=== PATIENT | female | born 1950 | race Caucasian/White ===

== ENCOUNTER 2016-05-25 06:07 | Inpatient (IN) | payer MEDICARE, OTHER ==
[~2016-05-25] VITALS: Ht 172.7 cm; Wt 61.2 kg
--- NOTE | 2016-05-25 07:52 | ERA ---
ER Documentation Chief Complaint Date/Time DATE: 05/25/16 TIME: 07:49 Chief Complaint easily tired x 2 weeks, jaundice skin color x 2 weeks HPI 65-year-old female who presents to the emergency room with fatigue, weight loss , painless jaundice. She describes approximately 2 weeks of symptoms. She states that she is seen in an urgent care and had blood work that showed a right hyperbilirubinemia. She states an ultrasound that showed a fatty liver. She denies any pain, no nausea vomiting or diarrhea. Patient denies any recent travel or diarrheal illness. She does not drink alcohol. ROS All systems reviewed and are negative except as per history of present illness. Allergies Allergies: Coded Allergies: codeine (Verified Allergy, Unknown, 05/25/16) sulfur (Verified Allergy, Unknown, 05/25/16) FmHx Family History: No diabetes Physical Exam Vitals Vital Signs Date Time Temp Pulse Resp B/P Pulse Ox O2 Delivery O2 Flow Rate FiO2 05/25/16 06:11 98.3 74 20 103/54 100 Physical Exam General: Well developed, well nourished, no acute distress, jaundiced Head: Normocephalic, atraumatic. Eyes: Pupils equally reactive, EOM intact scleral icterus ENT: Moist mucous membranes Neck: Supple, no lymphadenopathy Respiratory: Lungs clear bilaterally, no distress Cardiovascular: RRR, no murmurs, rubs, or gallops Abdominal: Soft, non-tender, non-distended, no peritoneal signs : Deferred MSK: No edema, no unilateral swelling, 5/5 strength Neurologic: Alert and oriented, moving all extremities, normal speech, no focal weakness, no cerebellar signs Skin: Significant jaundice Psych: Normal mood Result Diagram: 05/25/16 0820 05/25/16 0820 Results 24 hrs Laboratory Tests Test 05/25/16 07:30 05/25/16 08:20 Urine Bilirubin 3+ Urine Clarity SLIGHTLY CLOUDY Urine Color GIL Urine Glucose 0.25%% Urine Granular Casts FEW Urine Hemoglobin NEGATIVE Urine Ictotest POSITIVE Urine Ketones TRACE Urine Leukocyte Esterase NEGATIVE Urine Microscopic RBC NONE SEEN/HPF Urine Microscopic WBC NONE SEEN/HPF Urine Nitrite NEGATIVE Urine Specific [place] 1.020 Urine Squamous Epithelial Cells FEW Urine Total Protein TRACE Urine Urobilinogen 0.2 E.U./dL Urine pH 5.5 Activated Partial Thromboplast Time 34.3Sec Alanine Aminotransferase (ALT/SGPT) 659IU/L Albumin 3.2g/dl Albumin/Globulin Ratio 0.74 Alkaline Phosphatase 296IU/L Anion Gap 17 Aspartate Amino Transf (AST/SGOT) 1429IU/L Basophils # 0.110^3/ul Basophils % 1.0% Blood Urea Nitrogen 9mg/dl Calcium Level 9.0mg/dl Carbon Dioxide Level 26mmol/L Chloride Level 106mmol/L Creatinine 0.74mg/dl Direct Bilirubin 15.50mg/dl Eosinophils # 0.310^3/ul Eosinophils % 3.7% Globulin 4.30g/dl Glucose Level 92mg/dl Hematocrit 36.2% Hemoglobin 12.4g/dl INR International Normalized Ratio 1.29 Indirect Bilirubin 1.9mg/dl Lipase 329U/L Lymphocytes # 1.710^3/ul Lymphocytes % 23.5% Mean Corpuscular Hemoglobin 27.4pg Mean Corpuscular Hemoglobin Concent 34.3g/dl Mean Corpuscular Volume 79.9fl Mean Platelet Volume 10.0fl Monocytes # 1.210^3/ul Monocytes % 16.8% Neutrophils # 4.010^3/ul Neutrophils % 54.2% Nucleated Red Blood Cells # 0.010^3/ul Nucleated Red Blood Cells % 0.0/100WBC Platelet Count 19010^3/UL Potassium Level 4.1mmol/L Prothrombin Time 16.2Sec Prothrombin Time Ratio 1.3 Red Blood Count 4.5310^6/ul Red Cell Distribution Width 26.8% Sodium Level 145mmol/L Total Bilirubin 17.4mg/dl Total Protein 7.5g/dl White Blood Count 7.410^3/ul Current Medications Medications (Trade) Dose Ordered Sig/Keron Route PRN Reason Start Time Stop Time Status Last Admin Dose Admin Ondansetron HCl (Zofran Inj) 4 mg BRIDGE ORDER PRN IV NAUSEA AND/OR VOMITING 05/25/16 10:00 05/26/16 09:59 Acetaminophen (Tylenol Tab) 650 mg ER BRIDGE PRN PO MILD PAIN/FEVER 05/25/16 10:00 05/26/16 09:59 Procedures/MDM EKG, MONITORS, & DIAGNOSTIC IMAGING: Chest x-ray: I reviewed and interpreted a 1 view of the chest Mediastinum: No enlargement Cardiac silhouette: No cardiomegaly Airspace: Clear lung juarez bilaterally without evidence of pneumothorax Bones: No evidence of fracture Gallbladder ultrasound: IMPRESSION: 1. Unremarkable right upper quadrant ultrasound. 2. Nonvisualization of the gallbladder, which may be surgically absent. RPTAT: UU CT abdomen and pelvis: IMPRESSION: Rounded hypodensity of the left kidney measures 2.5 cm and could represent a hemorrhagic cyst however mass is not excluded. This can be better assessed with MRI of the abdomen without contrast or CT with renal protocol. Possible inflammatory changes the gallbladder which can be better assessed with gallbladder ultrasound. Mild splenomegaly. No evidence of bowel obstruction or inflammation. There is a fecal filled colon. Atherosclerotic disease is present. RPTAT: AA LAB INTERPRETATION: Indirect hyperbilirubinemia, transaminitis MEDICAL DECISION MAKING: I reviewed the patient's outpatient medical records. Appears the patient has significant direct hyperbilirubinemia. Her hepatitis screening was negative. Given the patient's painless jaundice this raises the concern for obstructive process such as pancreatic malignancy. She does not seem to exhibit any signs or symptoms concerning for hemolysis. No fever, no pain making ascending cholangitis and choledocholithiasis less likely. For these reasons I believe that brought her laboratory testing and CT imaging of the abdomen and pelvis would be reasonable. I would recommend inpatient hospitalization for further malignancy workup. ER COURSE: No evidence of hemolysis. Indirect hyperbilirubinemia is confirmed. Renal mass on CT. CT visualizes the gallbladder the ultrasound does not. The patient will certainly benefit from MRI imaging. Still strong concern for possible pancreatic mass. The patient has very poor outpatient follow-up, no primary care physician. I would strongly recommend inpatient hospitalization. Patient is agreeable. I kept the patient and/or family informed of laboratory and diagnostic imaging results throughout the emergency room course. DISPOSITION PLAN: Medical surgical admission for management of direct hyperbilirubinemia CONSULTATION: Accepting care team and consultations: I discussed the current laboratory data, diagnostic imaging and emergency care provided. Admitting team: Dr. Borrego Admitting team indication: Insurance directed Departure Diagnosis: Primary Impression: Direct hyperbilirubinemia Additional Impressions: Renal mass Transaminitis Condition: Stable KATIE ABERNATHY MD May 25, 2016 07:52
--- NOTE | 2016-05-25 07:57 | RADRPT ---
PROCEDURE: CT abdomen and pelvis without contrast. CLINICAL INDICATION: Abdominal pain. TECHNIQUE: CT scan of the abdomen and pelvis without contrast was performed on a multi-slice CT [facility] . Sagittal and coronal reformatted images were obtained from the axial source images. DLP 433.5 mGycm. CTDIvol 8.5 mGy COMPARISON: None FINDINGS: The lung bases are clear. There is limited evaluation of the solid viscera from the lack of IV con trast. Within the left kidney there is a rounded hyperdense lesion that measures 2.6 cm there is partially exophytic, left lower pole. No other focal renal lesions are present. There are no renal or ureter al calculi present with no hydronephrosis. There is normal density of the liver with no gross focal lesion or biliary ductal dilatation. The gallbladder there is a slightly irregular appearance with possible trace surrounding fat stranding a nd layering material within it. The spleen is at the upper limits of normal in size. The adrenal glands are within normal limits wi thout mass. The pancreas is unremarkable without focal lesion or surrounding inflammatory changes. There is no bowel obstruction or focal bowel inflammation. The appendix is not seen. There is a mil dly diffusely fecal filled colon. There is no free air or free fluid. There are no enlarged lymph n odes. There is aortic atherosclerosis without aneurysmal dilatation. Degenerative changes are seen in t he lumbar spine with no acute osseous abnormality. The pelvic organs are poorly visualized with no gross pelvic or adnexal mass. IMPRESSION: Rounded hypodensity of the left kidney measures 2.5 cm and could represent a hemorrhagic cyst howeve r mass is not excluded. This can be better assessed with MRI of the abdomen without contrast or CT with renal protocol. Possible inflammatory changes the gallbladder which can be better assessed with gallbladder ultrasou nd. Mild splenomegaly. No evidence of bowel obstruction or inflammation. There is a fecal filled colon. Atherosclerotic disease is present. RPTAT: AA .Lolita Villegas MD, Date Time Electronically viewed and signed by .Lolita Villegas MD, on 05/25/2016 07:56 .J/
[2016-05-25 08:04] LABS: ADD UMIC YES; URINE BILIRUBIN (Dip) 3+ (NEGATIVE); URINE BLOOD (Dip) NEGATIVE (NEGATIVE); URINE COLOR AMBER (YELLOW); URINE KETONES (Dip) TRACE (NEGATIVE); URINE LEUKOCYTE ESTERASE (Dip) NEGATIVE (NEGATIVE); URINE NITRITE (Dip) NEGATIVE (NEGATIVE); URINE TOTAL PROTEIN (Dip) TRACE (NEGATIVE); URINE UROBILINOGEN (Dip) 0.2 E.U./dL (0.1-1.0)
--- NOTE | 2016-05-25 08:18 | RADRPT ---
PROCEDURE: XR Chest. CLINICAL INDICATION: Abdominal pain. TECHNIQUE: Single frontal chest x-ray. COMPARISON: None available. FINDINGS: There are surgical clips overlying the right lower chest. The cardiomediastinal silhouette is within normal limits. The lungs are clear without focal consolidation, effusion, or pneumothorax. There are no acute osseous abnormalities. IMPRESSION: 1. No acute cardiopulmonary abnormality. RPTAT: GG .Boy Ruth MD, MD Date Time Electronically viewed and signed by .Boy Ruth MD, on 05/25/2016 08:18 .P/
[2016-05-25 08:19] LABS: ICTOTEST POSITIVE (NEGATIVE); SQUAMOUS EPITHELIAL CELL,UR FEW; URINE RBCS NONE SEEN /HPF (0)
--- NOTE | 2016-05-25 08:21 | RADRPT ---
PROCEDURE: Right upper quadrant abdominal ultrasound. CLINICAL INDICATION: Jaundice. TECHNIQUE: Multiple real-time longitudinal and transverse images of the right upper quadrant of th e abdomen were acquired utilizing a curved array transducer. Images were reviewed on a high-resoluti on PACS workstation. COMPARISON: CT dated 05/25/2016. FINDINGS: There is normal size and echogenicity of the liver with no focal mass lesion identified . There is h epatopedal flow within the main portal vein. The gallbladder is not identified and may be surgically absent. There is no intra or extrahepatic biliary ductal dilatation. The common bile duct measures 1.1 mm in maximal dimension. The visualized portions of the pancreas are unremarkable. No free flu id is identified. The right kidney measures 8.5 cm in length and demonstrates normal echogenicity. There is no hydrone phrosis, nephrolithiasis, or renal mass. IMPRESSION: 1. Unremarkable right upper quadrant ultrasound. 2. Nonvisualization of the gallbladder, which may be surgically absent. RPTAT: UU .Boy Ruth MD, MD Date Time Electronically viewed and signed by .Boy Ruth MD, MD on 05/25/2016 08:20 .P/
[2016-05-25 08:29] LABS: ADD SCAN DIFF NO
[2016-05-25 08:36] LABS: ABNORMAL IP MESSAGE 1; BASOPHIL # 0.1 10^3/ul (0.0-0.1); EOSINOPHILS # 0.3 10^3/ul (0.0-0.5); EOSINOPHILS % 3.7 % (0.0-7.0); HEMATOCRIT 36.2 % (37.0-47.0); HEMOGLOBIN 12.4 g/dl (12.0-16.0); LYMPHOCYTES # 1.7 10^3/ul (0.8-2.9); LYMPHOCYTES % 23.5 % (15.0-51.0); MEAN CORPUSCULAR HEMOGLOBIN 27.4 pg (29.0-33.0); MEAN CORPUSCULAR HGB CONC 34.3 g/dl (32.0-37.0); MEAN CORPUSCULAR VOLUME 79.9 fl (82.0-101.0); MONOCYTE # 1.2 10^3/ul (0.3-0.9); MONOCYTES % 16.8 % (0.0-11.0); NEUTROPHILS % 54.2 % (39.0-77.0); PLATELET COUNT 329 10^3/UL (140-415); RED BLOOD COUNT 4.53 10^6/ul (4.20-5.40); RED CELL DISTRIBUTION WIDTH 26.8 % (11.5-14.5); WHITE BLOOD COUNT 7.4 10^3/ul (4.8-10.8)
[2016-05-25 08:50] LABS: INR 1.29; PARTIAL THROMBOPLASTIN TIME 34.3 Sec (25.0-35.0); PROTIME 16.2 Sec (12.2-14.2); PT RATIO 1.3
[2016-05-25 08:51] LABS: ALBUMIN 3.2 g/dl (3.3-4.9)
[2016-05-25 08:52] LABS: POTASSIUM 4.1 mmol/L (3.5-5.1)
[2016-05-25 08:53] LABS: CREATININE 0.74 mg/dl (0.44-1.00)
[2016-05-25 08:54] LABS: ALBUMIN/GLOBULIN RATIO 0.74; BILIRUBIN,INDIRECT 1.9 mg/dl (0-1.1); BILIRUBIN,TOTAL 17.4 mg/dl (0.2-1.3); TOTAL PROTEIN 7.5 g/dl (6.1-8.1)
[2016-05-25 09:05] LABS: BILIRUBIN,DIRECT 15.5 mg/dl (0.00-0.20)
[2016-05-25] MEDS ORDERED: ONDANSETRON 4 MG INJ IV PRN ×2 (10:00→11:30)
[2016-05-25] MEDS ORDERED: ACETAMINOPHEN 325 MG TAB PO PRN (10:00)
[2016-05-25] MEDS ORDERED: SOD CHLORIDE 0.9% 1,000 ML IV SCH (11:00)
[2016-05-25 11:22] VITALS: TEMP 98.3
[2016-05-25] MEDS ORDERED: NACL 0.9% 3 ML SYG IV SCH (11:30)
[2016-05-25] MEDS ORDERED: morphine 2 MG INJ IV PRN (11:30)
[2016-05-25] MEDS ORDERED: MAGNESIUM HYDROXIDE 30ML CUP PO PRN (11:30)
[2016-05-25] MEDS ORDERED: BISACODYL (EC) 5 MG TAB PO PRN (11:30)
[2016-05-25 11:43] VITALS: Ht 172.7 cm; Wt 61.2 kg
[2016-05-25 11:57] VITALS: BP 108/55; PULSE 67; RESP 18
[2016-05-25] MEDS ORDERED: traMADol 50 MG TAB PO PRN (12:00)
[2016-05-25] MEDS: SOD CHLORIDE 0.9% 1,000 ML IV SCH (12:24)
[2016-05-25 12:33] LABS: RETICULOCYTE COUNT % 1.3 % (0.5-1.5)
--- NOTE | 2016-05-25 13:59 | HP ---
DATE OF ADMISSION: 05/25/2016 TIME OF EVALUATION: 11:45 a.m. REASON FOR ADMISSION: Easy fatigability and jaundice. Consultants 1. Faith Sharp M.D., Gastroenterology. HISTORY OF PRESENT ILLNESS: This is a 65-year-old female with a past medical history of right breast cancer, status post partial lumpectomy and radiation therapy, who denies any other significant medical problems, who came to the emergency room with a chief complaint of easy fatigability, weight loss, and painless jaundice. The patient visited an outpatient clinic for similar complaints, where she had workup done. The patient was noticed to have significant hyperbilirubinemia with transaminitis. The patient also underwent further testing including hepatitis A, B and C serologies that were negative. The patient's HIV 1 and 2 antibodies were negative. The patient denies any IV drug abuse. The patient denies any prior blood transfusions. The patient does not take any routine medications other than vitamin supplements. In the emergency room, the patient was noticed to have hyperbilirubinemia with transaminitis. The patient also has slightly elevated lipase levels (329). The patient's urinalysis also showed bilirubin 3+, with a urine glucose of 0.25% . The patient underwent a gallbladder ultrasound that showed non-visualization of the gallbladder; however, CT scan of the abdomen and pelvis showed possible inflammatory changes of the gallbladder, which can be better assessed with gallbladder ultrasound. The CT also revealed mild splenomegaly and a rounded hypodensity of the left kidney measuring up to 2.5 cm. There was no evidence of any bowel obstruction or inflammation. The patient's chest x-ray was negative for any acute cardiopulmonary changes. The patient denied any fevers, chills, abdominal pain. Denies any bowel or bladder changes. However, the patient reported dark colored urine, which is expected with hyperbilirubinemia. The patient denied any recent travel outside of the country. PAST MEDICAL HISTORY: Denies, other than a history for right breast cancer. PAST SURGICAL HISTORY: Right partial mastectomy, appendectomy, tonsillectomy and adenoidectomy. HOME MEDICATIONS: Vitamin supplements. ALLERGIES: 1. CODEINE. 2. SULFA. FAMILY HISTORY: Negative for any diabetes or cancer. SOCIAL HISTORY: Denies any use of tobacco, alcohol or illicit drug use. 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 REVIEW OF SYSTEMS: A 12-point review of systems was made and review of systems were negative, other than what is mentioned in the history of present illness. PHYSICAL EXAMINATION: VITAL SIGNS: Temperature 98.0, pulse 64, respiratory rate 18, blood pressure 108/54, oxygen saturation 99% on room air. GENERAL: This is a 65-year-old female lying in bed, in no apparent distress. HEENT: Head normocephalic and atraumatic. Eyes, icteric sclerae. Conjunctivae clear. ENT: Nasal septum is midline. Oral mucosa is dry. NECK: Supple. No JVD noticed. RESPIRATORY: Bilaterally clear to auscultation. No adventitious breath sounds. No use of accessory muscles of respiration. CARDIAC: Regular rate and rhythm. No murmurs heard. GASTROINTESTINAL: Abdomen soft, nontender and nondistended. Bowel sounds positive in all 4 quadrants. Right lower quadrant a transverse surgical scar from a prior appendectomy. GENITOURINARY: Deferred. EXTREMITIES: No cyanosis, no clubbing, no edema. Peripheral pulses are palpable. NEUROLOGIC: The patient is awake, alert and oriented. Cranial nerves are grossly intact. SKIN: Icterus all over the body. No skin lesions. LABORATORY AND DIAGNOSTIC DATA: WBC 7.4, hemoglobin 12.4, hematocrit 36.2, platelet count 329. Sodium 145, potassium 4.1, chloride 106, carbon dioxide 26 , anion gap 17, BUN 9, creatinine 0.74, glucose 92, calcium 9.0, total bilirubin 17.4, direct bilirubin 15.5, indirect bilirubin 1.9. AST 1429, ALT 659 , alkaline phosphatase 296. Total protein 7.5, albumin 3.2, lipase 329. INR 1.29. PT 16.2, PTT 34.3. Urinalysis: Urine nitrites negative, urine leukocyte esterase negative. Urine bilirubin 3+, urine glucose 0.25%. Gallbladder ultrasound: Unremarkable right upper quadrant ultrasound. Nonvisualization of the gallbladder. Chest x-ray: No acute cardiopulmonary abnormalities. CT scan of the abdomen and pelvis: A rounded hypodensity of the left kidney measuring 2.5 cm and could represent a hemorrhagic cyst; however, a mass is not excluded. Possible inflammatory changes in the gallbladder, which can be further assessed with a gallbladder ultrasound. Mild splenomegaly. No evidence of bowel obstruction or inflammation. Atherosclerotic disease is present. IMPRESSION: This is a 65-year-old female who denies any significant past medical history, other than a remote history of breast cancer that is completely treated, who came to the emergency room with a chief complaint of generalized jaundice, easy fatigability and pruritus. She was found to have significant hyperbilirubinemia and transaminitis, and will be admitted here for further treatment and evaluation. ASSESSMENT AND PLAN: 1. Hyperbilirubinemia with transaminitis. Etiology is unclear. The patient's hepatitis serology from outside lab tests are negative. The patient's abdominal imaging that we have as inconclusive at this time. Will obtain an MRCP to evaluate for any underlying choledocholithiasis or other abnormalities of the biliary tree. A gastroenterology consult will be obtained. Hepatotoxic medications will be avoided. The patient will be evaluated for any underlying hemolysis. 2. Remote history of breast cancer, status post right partial mastectomy and radiation therapy. No active issues. Plan. The patient will be admitted to the inpatient medical/surgical floor. The patient will be started on a clear liquid diet. The patient will be started on DVT prophylaxis and gastrointestinal prophylaxis. The patient will remain a FULL CODE. Activities will be as tolerated. The rest of the patient's management will be based on the clinical course, the results of diagnostic studies, and inputs from consultants. Based on the patient's clinical presentation, she most probably requires at least a 2-midnights' stay for further management and evaluation of her clinical presentation. The case and management of this patient was fully discussed with Dr. Slater. Approximately 45 minutes was spent on the history and physical on this patient. CHRISTINE SLATER MD, AM/[facility] Conf#: [id number] DID#: [id number] MTDD
[2016-05-25 14:42] LABS: HAAIG REFLEX REFLEX FILED
--- NOTE | 2016-05-25 15:58 | CONS ---
Date/Time of Note Date/Time of Note DATE: 05/25/16 TIME: 15:41 Assessment/Plan Assessment/Plan Additional Assessment/Plan Assessment: * Hyperbilirubinemia/abnormal liver function tests/hepatocellular pattern * Rule out acute hepatitis: Viral A, B, C, CMV, other viruses * Rule out drug-induced. Unlikely as there is no history of exposure * Rule out obstructive although no dilatation of common bile duct will not support this possibility * Doubt pancreatic head neoplasm with negative CT for pancreatic mass or dilatation of the biliary tree * Rule out atypical presentation for sclerosing cholangitis/primary biliary cirrhosis * Distant history of right breast cancer/post lumpectomy plus radiation Plan: * MRCP already ordered * Serologies requested * Monitor liver function tests * If no specific diagnosis or trend to resolution resolution occurs must consider liver biopsy Consultation Date/Type/Reason Admit Date/Time May 25, 2016 at 11:40 Date of Consultation: May 25, 2016 Type of Consultation: Gastroenterology Reason for Consultation * Jaundice Hx of Present Illness Very pleasant 65-year-old female, she was in her usual state of health until she noticed obvious jaundice. Patient had experienced some fatigability, decreased appetite, no abdominal pain, no fever, chills or diaphoresis. Evaluation in the emergency room showed severe jaundice with a bilirubin of more than 17 g with associated marked elevation of AST ALT in the thousand range. A CT of the abdomen showed a hypodense lesion in 1 of the kidneys, there is no evidence of pancreatic mass or dilatation of the biliary tree. The patient is indeed asymptomatic at the present time other than minor anorexia. She denies any ill contacts, foreign traveling, and usual medications , supplements. She does admit to taking multivitamins from [facility] like store and the recommended doses. She denies alcohol abuse, drug use recently or in the past. She is scheduled to undergo MRCP later on today and hepatitis serology including hepatitis B, C and CMV have been requested, further recommendations will depend on the findings as well as her clinical course Constitutional: improved, no complaints, other (Increased fatigability), poor po Eyes: no complaints, other (Anicteric conjunctiva) ENT: no complaints Respiratory: no complaints Cardiovascular: no complaints Gastrointestinal: decreased appetite, no complaints Genitourinary: no complaints, other (Dark urine) Musculoskeletal: no complaints Skin: other (Deep jaundice/no stigmata of chronic liver disease) Neurologic: no complaints Endocrine: no complaints Lymphatic: no complaints Psychological: nl mood/affect, no complaints Immunologic: no complaints Past Medical History * Right-sided breast cancer/post lumpectomy and radiation Past Surgical History * Right lumpectomy * Appendectomy Family History Significant Family History: no pertinent family hx Social History Alcohol Use: rarely Smoking Status: Never smoker Drug Use: none Exam/Review of Systems Vital Signs Vitals Vital Signs Date Time Temp Pulse Resp B/P Pulse Ox O2 Delivery O2 Flow Rate FiO2 05/25/16 11:57 98.0 67 18 108/55 99 Room Air Exam Constitutional: alert, oriented, other (Deeply jaundice), well developed Psych: nl mood/affect, no complaints Head: atraumatic, normocephalic Eyes: EOMI, PERRL, nl lids, other (Icteric conjunctiva) ENMT: nl external ears & nose, nl lips & teeth, nl nasal mucosa & septum Neck: non-tender, supple Respiratory: clear to auscultation, normal air movement Cardiovascular: nl pulses, regular rate and rhythm Gastrointestinal: bowel sounds, hepatomegaly (Approximately 4 cm below right costal margin, slightly tender), non-tender, soft, tender (Slightly in the liver edge/right upper quadrant), No ascites, No distended, No mass, No rebound or guarding, No splenomegaly Musculoskeletal: nl extremities to inspection Extremities: normal pulses 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, nl mental status, nl speech, nl strength Skin: nl turgor, other (Deeply jaundice), No rash or lesions Lymph: nl lymph nodes Results Result Diagram: 05/25/16 0820 05/25/16 0820 Results 24 hrs Laboratory Tests Test 05/25/16 07:30 05/25/16 08:20 05/25/16 12:00 05/25/16 12:10 Urine Bilirubin 3+ H Urine Clarity SLIGHTLY CLOUDY Urine Color GIL Urine Glucose 0.25% H Urine Granular Casts FEW Urine Hemoglobin NEGATIVE Urine Ictotest POSITIVE Urine Ketones TRACE H Urine Leukocyte Esterase NEGATIVE Urine Microscopic RBC NONE SEEN Urine Microscopic WBC NONE SEEN Urine Nitrite NEGATIVE Urine Specific [place] 1.020 Urine Squamous Epithelial Cells FEW Urine Total Protein TRACE Urine Urobilinogen 0.2 E.U./dL Urine pH 5.5 Activated Partial Thromboplast Time 34.3 Alanine Aminotransferase (ALT/SGPT) 659 H Albumin 3.2 L Albumin/Globulin Ratio 0.74 Alkaline Phosphatase 296 H Anion Gap 17 H Aspartate Amino Transf (AST/SGOT) 1429 H Basophils # 0.1 Basophils % 1.0 Blood Urea Nitrogen 9 Calcium Level 9.0 Carbon Dioxide Level 26 Chloride Level 106 Creatinine 0.74 Direct Bilirubin 15.50 *H Eosinophils # 0.3 Eosinophils % 3.7 Globulin 4.30 H Glucose Level 92 Hematocrit 36.2 L Hemoglobin 12.4 INR International Normalized Ratio 1.29 Indirect Bilirubin 1.9 H Lipase 329 H Lymphocytes # 1.7 Lymphocytes % 23.5 Mean Corpuscular Hemoglobin 27.4 L Mean Corpuscular Hemoglobin Concent 34.3 Mean Corpuscular Volume 79.9 L Mean Platelet Volume 10.0 Monocytes # 1.2 H Monocytes % 16.8 H Neutrophils # 4.0 Neutrophils % 54.2 Nucleated Red Blood Cells # 0.0 Nucleated Red Blood Cells % 0.0 Platelet Count 329 Potassium Level 4.1 Prothrombin Time 16.2 H Prothrombin Time Ratio 1.3 Red Blood Count 4.53 Red Cell Distribution Width 26.8 H Sodium Level 145 H Total Bilirubin 17.4 *H Total Protein 7.5 White Blood Count 7.4 Absolute Reticulocyte Count 0.056 Hemoglobin A1c 4.9 Percent Reticulocyte Count 1.3 Alpha Fetoprotein 10.40 H Free Thyroxine 1.43 Lactate Dehydrogenase 1124 H Thyroid Stimulating Hormone (TSH) 2.380 Vitamin D 1,25-Dihydroxy 75.0 Test 05/25/16 14:35 Hepatitis B Core Total Antibody Pending Hepatitis B Surface Antigen Pending Hepatitis C Antibody Pending Medications Medications Current Medications Ondansetron HCl (Zofran Inj) 4 mg Q6H PRN IV NAUSEA AND/OR VOMITING; Start 01/31 at 11:30 Magnesium Hydroxide (Milk Of Mag) 30 ml DAILY PRN PO CONSTIPATION; Start at 11:30 Bisacodyl (Dulcolax) 5 mg DAILY PRN PO CONSTIPATION; Start 05/25/16 at 11:30 Famotidine (Pepcid) 20 mg Q12 PO ; Start 05/25/16 at 21:00 Tramadol HCl 50 mg 50 mg Q6H PRN PO Pain; Start 05/25/16 at 12:00 Sodium Chloride (NS) 1,000 ml @ 75 mls/hr [id number] IV Last administered on 05/25t 12:24; Admin Dose 75 MLS/HR; Start 05/25/16 at 12:30 LESTER DICK MD May 25, 2016 15:51
[2016-05-25] MEDS ORDERED: MELA1TAB9 PO (16:27)
[2016-05-25] MEDS ORDERED: CALC600T5 PO (16:27)
[2016-05-25] MEDS ORDERED: CHOL400T8 PO (16:27)
[2016-05-25] MEDS ORDERED: [UNRECOGNIZED DRUG - OTHER] (16:27)
[2016-05-25] MEDS ORDERED: VIT500LI PO (16:27)
[2016-05-25] MEDS ORDERED: reishi (16:27)
[2016-05-25] MEDS ORDERED: GARL1TAB PO (16:27)
[2016-05-25 18:47] LABS: HEPATITIS B CORE ANTIBODY NEGATIVE (NEGATIVE)
[2016-05-25 19:16] VITALS: BP 99/54; RESP 18
[2016-05-25 20:00] VITALS: BP 99/54; PULSE 60; RESP 18
[2016-05-25] MEDS: FAMOTIDINE 20 MG TAB PO SCH (20:36)
[2016-05-26] MEDS: SOD CHLORIDE 0.9% 1,000 ML IV SCH ×2 (01:20→16:56)
[2016-05-26 06:05] LABS: ABNORMAL IP MESSAGE 1; ADD SCAN DIFF NO; BASOPHIL # 0.1 10^3/ul (0.0-0.1); BASOPHILS % 1.4 % (0.0-2.0); EOSINOPHILS # 0.4 10^3/ul (0.0-0.5); EOSINOPHILS % 5.4 % (0.0-7.0); HEMATOCRIT 33.9 % (37.0-47.0); HEMOGLOBIN 11.4 g/dl (12.0-16.0); LYMPHOCYTES # 2.1 10^3/ul (0.8-2.9); LYMPHOCYTES % 30.2 % (15.0-51.0); MEAN CORPUSCULAR HEMOGLOBIN 26.9 pg (29.0-33.0); MEAN CORPUSCULAR HGB CONC 33.6 g/dl (32.0-37.0); MEAN PLATELET VOLUME 10.4 fl (7.4-10.4); MONOCYTE # 1.3 10^3/ul (0.3-0.9); NEUTROPHIL # 3.1 10^3/ul (1.6-7.5); NEUTROPHILS % 44.5 % (39.0-77.0); PLATELET COUNT 290 10^3/UL (140-415); RED BLOOD COUNT 4.24 10^6/ul (4.20-5.40); RED CELL DISTRIBUTION WIDTH 27.4 % (11.5-14.5)
[2016-05-26 06:07] LABS: MONOCYTES % 18.1 % (0.0-11.0)
[2016-05-26 06:44] LABS: ALBUMIN 2.6 g/dl (3.3-4.9)
[2016-05-26 06:45] LABS: POTASSIUM 4.5 mmol/L (3.5-5.1)
[2016-05-26 06:47] LABS: ALBUMIN/GLOBULIN RATIO 0.7; BILIRUBIN,DIRECT 13.2 mg/dl (0.00-0.20); BILIRUBIN,INDIRECT 2.3 mg/dl (0-1.1); BILIRUBIN,TOTAL 15.5 mg/dl (0.2-1.3); CREATININE 0.72 mg/dl (0.44-1.00); TOTAL PROTEIN 6.3 g/dl (6.1-8.1)
[2016-05-26 06:48] LABS: CALCIUM 8.1 mg/dl (8.4-10.2)
[2016-05-26 06:57] LABS: MAGNESIUM 2.1 mg/dl (1.7-2.5); PHOSPHORUS 3.1 mg/dl (2.5-4.9)
[2016-05-26 07:35] VITALS: BP_SYST 125; BP_SYST 96; BP_DIAS 54; BP_DIAS 60; RESP 18
[2016-05-26] MEDS: FAMOTIDINE 20 MG TAB PO SCH ×2 (08:08→21:17)
[2016-05-26 08:30] VITALS: BP 135/60; RESP 20
--- NOTE | 2016-05-26 09:01 | CONS ---
Date/Time of Note Date/Time of Note DATE: 05/26/16 TIME: 08:59 Assessment/Plan Assessment/Plan Additional Assessment/Plan Assessment: * Hyperbilirubinemia/abnormal liver function tests/hepatocellular pattern * Rule out acute hepatitis: Viral A, B, C, CMV, other viruses * Rule out drug-induced. Unlikely as there is no history of exposure * Rule out obstructive although no dilatation of common bile duct will not support this possibility * Doubt pancreatic head neoplasm with negative CT for pancreatic mass or dilatation of the biliary tree * Rule out atypical presentation for sclerosing cholangitis/primary biliary cirrhosis * Distant history of right breast cancer/post lumpectomy plus radiation Plan: * MRCP already ordered * Serologies requested * Monitor liver function tests * If no specific diagnosis or trend to resolution resolution occurs must consider liver biopsy Consultation Date/Type/Reason Admit Date/Time May 25, 2016 at 11:40 Initial Consult Date 05/25/16 Type of Consultation: Gastroenterology 24 HR Interval Summary Free Text/Dictation Hepatitis panel negative MRCP in process today Tolerating diet Exam/Review of Systems Vital Signs Vitals Vital Signs Date Time Temp Pulse Resp B/P Pulse Ox O2 Delivery O2 Flow Rate FiO2 05/26/16 08:30 98.2 60 20 135/60 99 05/25/16 20:00 Room Air Intake and Output 05/25/16 05/25/16 05/26/16 15:00 23:00 07:00 Intake Total 950 ml 1190 ml Balance 950 ml 1190 ml Exam Constitutional: alert, oriented, other (Deeply jaundice), well developed Psych: nl mood/affect, no complaints Head: atraumatic, normocephalic Eyes: EOMI, PERRL, nl lids, other (Icteric conjunctiva) ENMT: nl external ears & nose, nl lips & teeth, nl nasal mucosa & septum Neck: non-tender, supple Respiratory: clear to auscultation, normal air movement Cardiovascular: nl pulses, regular rate and rhythm Gastrointestinal: bowel sounds, hepatomegaly (Approximately 4 cm below right costal margin, slightly tender), non-tender, soft, tender (Slightly in the liver edge/right upper quadrant), No ascites, No distended, No mass, No rebound or guarding, No splenomegaly Musculoskeletal: nl extremities to inspection Extremities: normal pulses 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, nl mental status, nl speech, nl strength Skin: nl turgor, other (Deeply jaundice), No rash or lesions Lymph: nl lymph nodes Results Result Diagram: 05/26/16 0504 05/26/16 0504 Results 24 hrs Laboratory Tests Test 05/25/16 12:00 05/25/16 12:10 05/25/16 14:35 05/26/16 05:04 Absolute Reticulocyte Count 0.056 Hemoglobin A1c 4.9 Percent Reticulocyte Count 1.3 Alpha Fetoprotein 10.40 H Free Thyroxine 1.43 Lactate Dehydrogenase 1124 H Thyroid Stimulating Hormone (TSH) 2.380 Vitamin D 1,25-Dihydroxy 75.0 Hepatitis B Core Total Antibody NEGATIVE Hepatitis B Surface Antibody NEGATIVE Hepatitis B Surface Antigen NEGATIVE Hepatitis C Antibody NEGATIVE Alanine Aminotransferase (ALT/SGPT) 548 H Albumin 2.6 L Albumin/Globulin Ratio 0.70 Alkaline Phosphatase 243 H Ammonia 26 Amylase Level 64 Anion Gap 16 Aspartate Amino Transf (AST/SGOT) 1386 H Basophils # 0.1 Basophils % 1.4 Blood Urea Nitrogen 7 Calcium Level 8.1 L Carbon Dioxide Level 23 Chloride Level 109 Cholesterol Level 164 Cholesterol/HDL Ratio 6.0 Creatinine 0.72 Direct Bilirubin 13.20 H Eosinophils # 0.4 Eosinophils % 5.4 Globulin 3.70 H Glucose Level 72 HDL Cholesterol 27 L Hematocrit 33.9 L Hemoglobin 11.4 L Indirect Bilirubin 2.3 H LDL Cholesterol, Calculated 78 Lipase 163 Lymphocytes # 2.1 Lymphocytes % 30.2 Magnesium Level 2.1 Mean Corpuscular Hemoglobin 26.9 L Mean Corpuscular Hemoglobin Concent 33.6 Mean Corpuscular Volume 80.0 L Mean Platelet Volume 10.4 Monocytes # 1.3 H Monocytes % 18.1 H Neutrophils # 3.1 Neutrophils % 44.5 Nucleated Red Blood Cells # 0.0 Nucleated Red Blood Cells % 0.0 Phosphorus Level 3.1 Platelet Count 290 Potassium Level 4.5 Red Blood Count 4.24 Red Cell Distribution Width 27.4 H Sodium Level 143 Total Bilirubin 15.5 *H Total Protein 6.3 # Triglycerides Level 294 H White Blood Count 7.0 Medications Medications Current Medications Ondansetron HCl (Zofran Inj) 4 mg Q6H PRN IV NAUSEA AND/OR VOMITING; Start 01/31 at 11:30 Magnesium Hydroxide (Milk Of Mag) 30 ml DAILY PRN PO CONSTIPATION; Start at 11:30 Bisacodyl (Dulcolax) 5 mg DAILY PRN PO CONSTIPATION; Start 05/25/16 at 11:30 Famotidine (Pepcid) 20 mg Q12 PO Last administered on 05/26/16 08:08; Admin Dose 20 MG; Start 05/25/16 at 21:00 Tramadol HCl 50 mg 50 mg Q6H PRN PO Pain Last administered on 05/26/16 01:19; Admin Dose 50 MG; Start 05/25/16 at 12:00 Sodium Chloride (NS) 1,000 ml @ 75 mls/hr [id number] IV Last administered on 05/26 01:20; Admin Dose 75 MLS/HR; Start 05/25/16 at 12:30 STANLEY MARTINEZ May 26, 2016 09:01
--- NOTE | 2016-05-26 11:59 | PN ---
Date/Time of Note Date/Time of Note DATE: 05/26/16 TIME: 11:57 Assessment/Plan VTE Prophylaxis VTE Prophylaxis Intervention: other Lines/Catheters IV [facility] Peripheral IV Urinary Cath still in place: No Assessment/Plan Problems: (1) Direct hyperbilirubinemia Status: Acute Comment: Pending is the MRCP which should give us a direction to go in. Given the painless jaundice I am somewhat concerned (2) Breast cancer, right Status: Chronic Comment: This is an older report but we need to be aware of Qualifiers: Breast location: upper outer quadrant of breast Patient gender: female Qualified Code: C50.411 - Malignant neoplasm of upper-outer quadrant of right female breast (3) Transaminitis Status: Acute Comment: Duration is not entirely clear but I believe this is related to the admission complaint (4) Renal mass Status: Acute Subjective 24 Hr Interval Summary Free Text/Dictation Patient reports that she is doing relatively well no significant pruritus Constitutional: no complaints (No fever chills or sweats) Respiratory: no complaints Cardiovascular: no complaints Gastrointestinal: no complaints Genitourinary: no complaints Exam/Review of Systems Vital Signs Vitals Vital Signs Date Time Temp Pulse Resp B/P Pulse Ox O2 Delivery O2 Flow Rate FiO2 05/26/16 08:30 98.2 60 20 135/60 99 05/25/16 20:00 Room Air Intake and Output 05/25/16 05/25/16 05/26/16 14:59 22:59 06:59 Intake Total 950 ml 1190 ml Balance 950 ml 1190 ml Exam Deeply jaundiced Constitutional: alert, oriented Respiratory: clear to auscultation, normal air movement Cardiovascular: nl pulses, regular rate and rhythm Results Result Diagram: 05/26/16 0504 05/26/16 0504 Results 24 hrs Laboratory Tests Test 05/25/16 12:00 05/25/16 12:10 05/25/16 14:35 05/26/16 05:04 Absolute Reticulocyte Count 0.056 Hemoglobin A1c 4.9 Percent Reticulocyte Count 1.3 Alpha Fetoprotein 10.40 H Free Thyroxine 1.43 Lactate Dehydrogenase 1124 H Thyroid Stimulating Hormone (TSH) 2.380 Vitamin D 1,25-Dihydroxy 75.0 Hepatitis B Core Total Antibody NEGATIVE Hepatitis B Surface Antibody NEGATIVE Hepatitis B Surface Antigen NEGATIVE Hepatitis C Antibody NEGATIVE Alanine Aminotransferase (ALT/SGPT) 548 H Albumin 2.6 L Albumin/Globulin Ratio 0.70 Alkaline Phosphatase 243 H Ammonia 26 Amylase Level 64 Anion Gap 16 Aspartate Amino Transf (AST/SGOT) 1386 H Basophils # 0.1 Basophils % 1.4 Blood Urea Nitrogen 7 Calcium Level 8.1 L Carbon Dioxide Level 23 Chloride Level 109 Cholesterol Level 164 Cholesterol/HDL Ratio 6.0 Creatinine 0.72 Direct Bilirubin 13.20 H Eosinophils # 0.4 Eosinophils % 5.4 Globulin 3.70 H Glucose Level 72 HDL Cholesterol 27 L Hematocrit 33.9 L Hemoglobin 11.4 L Indirect Bilirubin 2.3 H LDL Cholesterol, Calculated 78 Lipase 163 Lymphocytes # 2.1 Lymphocytes % 30.2 Magnesium Level 2.1 Mean Corpuscular Hemoglobin 26.9 L Mean Corpuscular Hemoglobin Concent 33.6 Mean Corpuscular Volume 80.0 L Mean Platelet Volume 10.4 Monocytes # 1.3 H Monocytes % 18.1 H Neutrophils # 3.1 Neutrophils % 44.5 Nucleated Red Blood Cells # 0.0 Nucleated Red Blood Cells % 0.0 Phosphorus Level 3.1 Platelet Count 290 Potassium Level 4.5 Red Blood Count 4.24 Red Cell Distribution Width 27.4 H Sodium Level 143 Total Bilirubin 15.5 *H Total Protein 6.3 # Triglycerides Level 294 H White Blood Count 7.0 Medications Medications Current Medications Ondansetron HCl (Zofran Inj) 4 mg Q6H PRN IV NAUSEA AND/OR VOMITING; Start 01/31 at 11:30 Magnesium Hydroxide (Milk Of Mag) 30 ml DAILY PRN PO CONSTIPATION; Start at 11:30 Bisacodyl (Dulcolax) 5 mg DAILY PRN PO CONSTIPATION; Start 05/25/16 at 11:30 Famotidine (Pepcid) 20 mg Q12 PO Last administered on 05/26/16 08:08; Admin Dose 20 MG; Start 05/25/16 at 21:00 Tramadol HCl 50 mg 50 mg Q6H PRN PO Pain Last administered on 05/26/16 01:19; Admin Dose 50 MG; Start 05/25/16 at 12:00 Sodium Chloride (NS) 1,000 ml @ 75 mls/hr [id number] IV Last administered on 05/26 01:20; Admin Dose 75 MLS/HR; Start 05/25/16 at 12:30 ANDREW COLEMAN MD May 26, 2016 11:59
[2016-05-26 19:00] VITALS: BP 116/57; RESP 16
[2016-05-27] MEDS: SOD CHLORIDE 0.9% 1,000 ML IV SCH ×4 (04:05→20:13)
[2016-05-27 05:37] LABS: ADD SCAN DIFF NO
[2016-05-27 05:44] LABS: ABNORMAL IP MESSAGE 1; BASOPHIL # 0.1 10^3/ul (0.0-0.1); BASOPHILS % 1.2 % (0.0-2.0); EOSINOPHILS # 0.4 10^3/ul (0.0-0.5); EOSINOPHILS % 4.4 % (0.0-7.0); HEMATOCRIT 34.2 % (37.0-47.0); HEMOGLOBIN 11.4 g/dl (12.0-16.0); LYMPHOCYTES # 2.6 10^3/ul (0.8-2.9); LYMPHOCYTES % 32.4 % (15.0-51.0); MEAN CORPUSCULAR HEMOGLOBIN 26.6 pg (29.0-33.0); MEAN CORPUSCULAR HGB CONC 33.3 g/dl (32.0-37.0); MEAN CORPUSCULAR VOLUME 79.7 fl (82.0-101.0); MEAN PLATELET VOLUME 9.9 fl (7.4-10.4); MONOCYTE # 1.3 10^3/ul (0.3-0.9); MONOCYTES % 15.7 % (0.0-11.0); NEUTROPHIL # 3.7 10^3/ul (1.6-7.5); NEUTROPHILS % 45.6 % (39.0-77.0); PLATELET COUNT 278 10^3/UL (140-415); RED BLOOD COUNT 4.29 10^6/ul (4.20-5.40); RED CELL DISTRIBUTION WIDTH 28.8 % (11.5-14.5); WHITE BLOOD COUNT 8.2 10^3/ul (4.8-10.8)
[2016-05-27 05:59] LABS: ALBUMIN 2.6 g/dl (3.3-4.9)
[2016-05-27 06:00] LABS: POTASSIUM 4.4 mmol/L (3.5-5.1)
[2016-05-27 06:02] LABS: ALBUMIN/GLOBULIN RATIO 0.66; CREATININE 0.73 mg/dl (0.44-1.00); TOTAL PROTEIN 6.5 g/dl (6.1-8.1)
[2016-05-27 06:03] LABS: CALCIUM 8.2 mg/dl (8.4-10.2)
[2016-05-27 07:50] VITALS: BP 101/52; RESP 16
--- NOTE | 2016-05-27 10:33 | RADRPT ---
PROCEDURE: MRCP. CLINICAL INDICATION: Hyperbilirubinemia. TECHNIQUE: MRCP was performed. Patient was examined without contrast. 3-D coronal rotating MIP i mages of the biliary tree are available for review. COMPARISON: Ultrasound and CT, 05/25/2016 FINDINGS: The gallbladder is partially contracted, and demonstrates diffuse wall edema. No gross evidence of gallstone or pericholecystic inflammation is identified. There is no intra or extrahepatic biliary dilatation. No common duct stone, stricture or filling defect is identified. Pancreatic duct is no rmal in caliber. The liver demonstrates scattered well-defined T2 hyperintensities measuring up to 1.7 cm, likely ceci ign hemangiomas. Pancreas, spleen, adrenal glands and kidneys are unremarkable except for benign re nal cysts, some which are hemorrhagic. There is no obstructive uropathy. Abdominal aorta is normal in caliber. No retroperitoneal or dayanna hepatis lymphadenopathy is identified. The stomach is rose ssly unremarkable. No bowel obstruction, abscess or ascites is seen. The surrounding osseous structures are remarkable for degenerative spondylosis of the spine. No foc al osseous lesion is seen. IMPRESSION: 1. Gallbladder is partially contracted, and demonstrates diffuse wall edema, most likely reactive s econdary to underlying liver disease - correlate with liver function tests. No evidence of cholelit hiasis or pericholecystic inflammation is identified. 2. Liver demonstrates scattered well-defined T2 hyperintensities, correlating to hypodensities on r ecent prior CT, likely benign hemangiomas. 3. No biliary dilatation or choledocholithiasis is identified. 4. Kidneys demonstrate scattered benign cysts, some of which are hemorrhagic. RPTAT: EE .Felix Arellano MD, MD Date Time Electronically viewed and signed by .Felix Arellano MD, MD on 05/27/2016 10:32 .R/
[2016-05-27] MEDS: FAMOTIDINE 20 MG TAB PO SCH ×2 (11:52→20:13)
[2016-05-27 20:00] VITALS: BP 109/59; PULSE 63; RESP 16
--- NOTE | 2016-05-27 20:16 | PN ---
Date/Time of Note Date/Time of Note DATE: 05/27/16 TIME: 20:11 Assessment/Plan VTE Prophylaxis VTE Prophylaxis Intervention: SCD's Lines/Catheters IV [facility] Type (from [facility] Peripheral IV Urinary Cath still in place: No Assessment/Plan Chief Complaint/Hosp Course 1. Painless jaundice with transaminitis MRCP shows no evidence of mass, hepatitis panel was negative GI consult appreciated autoimmune workup in progress Monitor LFT trend 2. History of breast cancer No acute issues 3. Renal mass likely hemorrhagic cyst Monitor Prophylaxis: SCDs Problems: Subjective 24 Hr Interval Summary Constitutional: no complaints Exam/Review of Systems Vital Signs Vitals Vital Signs Date Time Temp Pulse Resp B/P Pulse Ox O2 Delivery O2 Flow Rate FiO2 05/27/16 07:50 98.0 58 16 101/52 96 05/25/16 20:00 Room Air Intake and Output 05/26/16 05/26/16 05/27/16 14:59 22:59 06:59 Intake Total 1090 ml 1165 ml Balance 1090 ml 1165 ml Exam Constitutional: alert, oriented Respiratory: clear to auscultation Cardiovascular: regular rate and rhythm Gastrointestinal: non-tender, soft, No distended Musculoskeletal: nl extremities to inspection Skin: other (jaundice) Results Result Diagram: 05/27/16 0511 05/27/16 0511 Results 24 hrs Laboratory Tests Test 05/27/16 05:11 Alanine Aminotransferase (ALT/SGPT) 555 H Albumin 2.6 L Albumin/Globulin Ratio 0.66 Alkaline Phosphatase 242 H Anion Gap 15 Aspartate Amino Transf (AST/SGOT) 1405 H Basophils # 0.1 Basophils % 1.2 Blood Urea Nitrogen 7 Calcium Level 8.2 L Carbon Dioxide Level 23 Chloride Level 111 H Creatinine 0.73 Direct Bilirubin 14.00 H Eosinophils # 0.4 Eosinophils % 4.4 Globulin 3.90 H Glucose Level 85 Hematocrit 34.2 L Hemoglobin 11.4 L Indirect Bilirubin 2.0 H Lymphocytes # 2.6 Lymphocytes % 32.4 Magnesium Level 2.0 Mean Corpuscular Hemoglobin 26.6 L Mean Corpuscular Hemoglobin Concent 33.3 Mean Corpuscular Volume 79.7 L Mean Platelet Volume 9.9 Monocytes # 1.3 H Monocytes % 15.7 H Neutrophils # 3.7 Neutrophils % 45.6 Nucleated Red Blood Cells # 0.0 Nucleated Red Blood Cells % 0.0 Platelet Count 278 Potassium Level 4.4 Red Blood Count 4.29 Red Cell Distribution Width 28.8 H Sodium Level 145 H Total Bilirubin 16.0 *H Total Protein 6.5 White Blood Count 8.2 Medications Medications Current Medications Ondansetron HCl (Zofran Inj) 4 mg Q6H PRN IV NAUSEA AND/OR VOMITING; Start 01/31 at 11:30 Magnesium Hydroxide (Milk Of Mag) 30 ml DAILY PRN PO CONSTIPATION; Start at 11:30 Bisacodyl (Dulcolax) 5 mg DAILY PRN PO CONSTIPATION; Start 05/25/16 at 11:30 Famotidine (Pepcid) 20 mg Q12 PO Last administered on 05/27/16 11:52; Admin Dose 20 MG; Start 05/25/16 at 21:00 Tramadol HCl 50 mg 50 mg Q6H PRN PO Pain Last administered on 05/26/16 01:19; Admin Dose 50 MG; Start 05/25/16 at 12:00 Sodium Chloride (NS) 1,000 ml @ 75 mls/hr [id number] IV Last administered on 05/27 04:57; Admin Dose 75 MLS/HR; Start 05/25/16 at 12:30 ANSLEY ROMERO May 27, 2016 20:15
--- NOTE | 2016-05-27 20:45 | PN ---
Date/Time of Note Date/Time of Note DATE: 05/27/16 TIME: 20:45 Assessment/Plan VTE Prophylaxis VTE Prophylaxis Intervention: SCD's Lines/Catheters IV [facility]from [facility] Peripheral IV Urinary Cath still in place: No Assessment/Plan Chief Complaint/Hosp Course Very pleasant 65-year-old female, she was in her usual state of health until she noticed obvious jaundice. Patient had experienced some fatigability, decreased appetite, no abdominal pain, no fever, chills or diaphoresis. Evaluation in the emergency room showed severe jaundice with a bilirubin of more than 17 g with associated marked elevation of AST ALT in the thousand range. A CT of the abdomen showed a hypodense lesion in 1 of the kidneys, there is no evidence of pancreatic mass or dilatation of the biliary tree. The patient is indeed asymptomatic at the present time other than minor anorexia. She denies any ill contacts, foreign traveling, and usual medications , supplements. She does admit to taking multivitamins from [facility] like store and the recommended doses. She denies alcohol abuse, drug use recently or in the past. She is scheduled to undergo MRCP later on today and hepatitis serology including hepatitis B, C and CMV have been requested, further recommendations will depend on the findings as well as her clinical course Problems: Exam/Review of Systems Vital Signs Vitals Vital Signs Date Time Temp Pulse Resp B/P Pulse Ox O2 Delivery O2 Flow Rate FiO2 05/27/16 07:50 98.0 58 16 101/52 96 05/25/16 20:00 Room Air Intake and Output 05/26/16 05/26/16 05/27/16 14:59 22:59 06:59 Intake Total 1090 ml 1165 ml Balance 1090 ml 1165 ml Results Result Diagram: 05/27/16 0511 05/27/16 0511 Results 24 hrs Laboratory Tests Test 05/27/16 05:11 Alanine Aminotransferase (ALT/SGPT) 555 H Albumin 2.6 L Albumin/Globulin Ratio 0.66 Alkaline Phosphatase 242 H Anion Gap 15 Aspartate Amino Transf (AST/SGOT) 1405 H Basophils # 0.1 Basophils % 1.2 Blood Urea Nitrogen 7 Calcium Level 8.2 L Carbon Dioxide Level 23 Chloride Level 111 H Creatinine 0.73 Direct Bilirubin 14.00 H Eosinophils # 0.4 Eosinophils % 4.4 Globulin 3.90 H Glucose Level 85 Hematocrit 34.2 L Hemoglobin 11.4 L Indirect Bilirubin 2.0 H Lymphocytes # 2.6 Lymphocytes % 32.4 Magnesium Level 2.0 Mean Corpuscular Hemoglobin 26.6 L Mean Corpuscular Hemoglobin Concent 33.3 Mean Corpuscular Volume 79.7 L Mean Platelet Volume 9.9 Monocytes # 1.3 H Monocytes % 15.7 H Neutrophils # 3.7 Neutrophils % 45.6 Nucleated Red Blood Cells # 0.0 Nucleated Red Blood Cells % 0.0 Platelet Count 278 Potassium Level 4.4 Red Blood Count 4.29 Red Cell Distribution Width 28.8 H Sodium Level 145 H Total Bilirubin 16.0 *H Total Protein 6.5 White Blood Count 8.2 Medications Medications Current Medications Ondansetron HCl (Zofran Inj) 4 mg Q6H PRN IV NAUSEA AND/OR VOMITING; Start 01/31 at 11:30 Magnesium Hydroxide (Milk Of Mag) 30 ml DAILY PRN PO CONSTIPATION; Start at 11:30 Bisacodyl (Dulcolax) 5 mg DAILY PRN PO CONSTIPATION; Start 05/25/16 at 11:30 Famotidine (Pepcid) 20 mg Q12 PO Last administered on 05/27/16 20:13; Admin Dose 20 MG; Start 05/25/16 at 21:00 Tramadol HCl 50 mg 50 mg Q6H PRN PO Pain Last administered on 05/26/16 01:19; Admin Dose 50 MG; Start 05/25/16 at 12:00 Sodium Chloride (NS) 1,000 ml @ 75 mls/hr [id number] IV Last administered on 05/27 20:13; Admin Dose 75 MLS/HR; Start 05/25/16 at 12:30 LESTER DICK MD May 27, 2016 20:45
[2016-05-28 05:41] LABS: ADD SCAN DIFF NO
[2016-05-28 05:54] LABS: ABNORMAL IP MESSAGE 1; BASOPHIL # 0.1 10^3/ul (0.0-0.1); BASOPHILS % 1.3 % (0.0-2.0); EOSINOPHILS # 0.3 10^3/ul (0.0-0.5); EOSINOPHILS % 4.8 % (0.0-7.0); HEMATOCRIT 30.9 % (37.0-47.0); HEMOGLOBIN 10.8 g/dl (12.0-16.0); LYMPHOCYTES # 2.2 10^3/ul (0.8-2.9); LYMPHOCYTES % 31.2 % (15.0-51.0); MEAN CORPUSCULAR HEMOGLOBIN 27.4 pg (29.0-33.0); MEAN CORPUSCULAR VOLUME 78.4 fl (82.0-101.0); MEAN PLATELET VOLUME 10.7 fl (7.4-10.4); MONOCYTE # 1.2 10^3/ul (0.3-0.9); MONOCYTES % 16.6 % (0.0-11.0); NEUTROPHIL # 3.2 10^3/ul (1.6-7.5); NEUTROPHILS % 45.1 % (39.0-77.0); PLATELET COUNT 270 10^3/UL (140-415); RED BLOOD COUNT 3.94 10^6/ul (4.20-5.40); RED CELL DISTRIBUTION WIDTH 28.8 % (11.5-14.5); WHITE BLOOD COUNT 7.1 10^3/ul (4.8-10.8)
[2016-05-28 05:59] LABS: ALBUMIN 2.3 g/dl (3.3-4.9)
[2016-05-28 06:00] LABS: POTASSIUM 3.6 mmol/L (3.5-5.1)
[2016-05-28 06:01] LABS: IRON 165 ug/dl (35-150)
[2016-05-28 06:02] LABS: ALBUMIN/GLOBULIN RATIO 0.63; BILIRUBIN,INDIRECT 2.1 mg/dl (0-1.1); BILIRUBIN,TOTAL 15.1 mg/dl (0.2-1.3); CALCIUM 7.8 mg/dl (8.4-10.2); CREATININE 0.67 mg/dl (0.44-1.00); TOTAL PROTEIN 5.9 g/dl (6.1-8.1)
[2016-05-28 06:11] LABS: TOTAL IRON BINDING CAPACITY 268 ug/dl (241-421)
[2016-05-28 07:58] VITALS: BP 105/52; RESP 22
[2016-05-28] MEDS: FAMOTIDINE 20 MG TAB PO SCH ×2 (08:03→20:20)
--- NOTE | 2016-05-28 08:18 | CONS ---
Date/Time of Note Date/Time of Note DATE: 05/28/16 TIME: 08:08 Assessment/Plan Assessment/Plan Additional Assessment/Plan Assessment: * Hyperbilirubinemia/abnormal liver function tests/hepatocellular pattern * Rule out acute hepatitis: Viral A, B, C, CMV, other viruses * Rule out drug-induced. Unlikely as there is no history of exposure * Rule out obstructive although no dilatation of common bile duct will not support this possibility * MRCP: 1.Gallbladder is partially contracted, and demonstrates diffuse wall edema, most likely reactive secondary to underlying liver disease - correlate with liver function tests. No evidence of cholelithiasis or pericholecystic inflammation is identified. 2. Liver demonstrates scattered well-defined T2 hyperintensities, correlating to hypodensities on recent prior CT, likely benign hemangiomas. 3. No biliary dilatation or choledocholithiasis is identified. * Doubt pancreatic head neoplasm with negative CT for pancreatic mass or dilatation of the biliary tree * Rule out atypical presentation for sclerosing cholangitis/primary biliary cirrhosis * Distant history of right breast cancer/post lumpectomy plus radiation Plan: * Serologies requested, CMV pending * Monitor liver function tests * If no specific diagnosis or trend to resolution resolution occurs must consider liver biopsy * Further recommendations depend on clinical course * Patient seen in collaboration with Dr. Sharp Consultation Date/Type/Reason Admit Date/Time May 25, 2016 at 11:40 Initial Consult Date 05/25/16 Type of Consultation: Gastroenterology 24 HR Interval Summary Free Text/Dictation LFTs trending downward slowly Liver biopsy recommended in 48 hours from today Review blood work Exam/Review of Systems Vital Signs Vitals Vital Signs Date Time Temp Pulse Resp B/P Pulse Ox O2 Delivery O2 Flow Rate FiO2 05/28/16 07:58 97.6 57 22 105/52 97 05/27/16 20:00 Room Air Intake and Output 05/27/16 05/27/16 05/28/16 15:00 23:00 07:00 Intake Total 925 ml 675 ml Balance 925 ml 675 ml Exam Constitutional: alert, oriented, other (Deeply jaundice), well developed Psych: nl mood/affect, no complaints Head: atraumatic, normocephalic Eyes: EOMI, PERRL, nl lids, other (Icteric conjunctiva) ENMT: nl external ears & nose, nl lips & teeth, nl nasal mucosa & septum Neck: non-tender, supple Respiratory: clear to auscultation, normal air movement Cardiovascular: nl pulses, regular rate and rhythm Gastrointestinal: bowel sounds, hepatomegaly (Approximately 4 cm below right costal margin), non-tender, soft No ascites, No distended, No mass, No rebound or guarding, No splenomegaly Musculoskeletal: nl extremities to inspection Extremities: normal pulses 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, nl mental status, nl speech, nl strength Skin: nl turgor, other (Deeply jaundice), No rash or lesions Lymph: nl lymph nodes Results Result Diagram: 05/28/165 05/28/165 Results 24 hrs Laboratory Tests Test 05/28/16 04:55 Alanine Aminotransferase (ALT/SGPT) 501 H Albumin 2.3 L Albumin/Globulin Ratio 0.63 Alkaline Phosphatase 214 H Anion Gap 12 Aspartate Amino Transf (AST/SGOT) 1270 H Basophils # 0.1 Basophils % 1.3 Blood Urea Nitrogen 7 Calcium Level 7.8 L Carbon Dioxide Level 24 Chloride Level 111 H Creatinine 0.67 Direct Bilirubin 13.00 H Eosinophils # 0.3 Eosinophils % 4.8 Ferritin 659.0 H Globulin 3.60 H Glucose Level 83 Hematocrit 30.9 L Hemoglobin 10.8 L Indirect Bilirubin 2.1 H Iron Level 165 H Lymphocytes # 2.2 Lymphocytes % 31.2 Magnesium Level 1.9 Mean Corpuscular Hemoglobin 27.4 L Mean Corpuscular Hemoglobin Concent 35.0 Mean Corpuscular Volume 78.4 L Mean Platelet Volume 10.7 H Monocytes # 1.2 H Monocytes % 16.6 H Neutrophils # 3.2 Neutrophils % 45.1 Nucleated Red Blood Cells # 0.0 Nucleated Red Blood Cells % 0.0 Percent Iron Saturation 62 H Platelet Count 270 Potassium Level 3.6 Red Blood Count 3.94 L Red Cell Distribution Width 28.8 H Sodium Level 143 Total Bilirubin 15.1 *H Total Iron Binding Capacity 268 Total Protein 5.9 L White Blood Count 7.1 Medications Medications Current Medications Ondansetron HCl (Zofran Inj) 4 mg Q6H PRN IV NAUSEA AND/OR VOMITING; Start 01/31 at 11:30 Magnesium Hydroxide (Milk Of Mag) 30 ml DAILY PRN PO CONSTIPATION; Start at 11:30 Bisacodyl (Dulcolax) 5 mg DAILY PRN PO CONSTIPATION; Start 05/25/16 at 11:30 Famotidine (Pepcid) 20 mg Q12 PO Last administered on 05/28/16 08:03; Admin Dose 20 MG; Start 05/25/16 at 21:00 Tramadol HCl 50 mg 50 mg Q6H PRN PO Pain Last administered on 05/26/16 01:19; Admin Dose 50 MG; Start 05/25/16 at 12:00 Sodium Chloride (NS) 1,000 ml @ 75 mls/hr [id number] IV Last administered on 05/27 20:13; Admin Dose 75 MLS/HR; Start 05/25/16 at 12:30 STANLEY MARTINEZ May 28, 2016 08:18
[2016-05-28] MEDS: SOD CHLORIDE 0.9% 1,000 ML IV SCH ×2 (09:36→22:05)
[2016-05-28 15:02] LABS: CYTOMEGALOVIRUS ANTIBODY (IGM) <0.2
--- NOTE | 2016-05-28 16:40 | PN ---
Date/Time of Note Date/Time of Note DATE: 05/28/16 TIME: 16:39 Assessment/Plan VTE Prophylaxis VTE Prophylaxis Intervention: SCD's Lines/Catheters IV Catheter Type (from [facility], [place]): Peripheral IV Urinary Cath still in place: No Assessment/Plan Chief Complaint/Hosp Course 1. Painless jaundice with transaminitis-improving MRCP shows no evidence of mass, hepatitis panel was negative GI consult appreciated autoimmune workup in progress LFTs are gradually improving, continue to monitor 2. History of breast cancer No acute issues 3. Renal mass likely hemorrhagic cyst Monitor Prophylaxis: SCDs Problems: Subjective 24 Hr Interval Summary Constitutional: no complaints Exam/Review of Systems Vital Signs Vitals Vital Signs Date Time Temp Pulse Resp B/P Pulse Ox O2 Delivery O2 Flow Rate FiO2 05/28/16 07:58 97.6 57 22 105/52 97 05/27/16 20:00 Room Air Intake and Output 05/27/16 05/27/16 05/28/16 15:00 23:00 07:00 Intake Total 925 ml 675 ml Balance 925 ml 675 ml Exam Constitutional: alert, oriented Respiratory: clear to auscultation Cardiovascular: regular rate and rhythm Gastrointestinal: soft, No distended Musculoskeletal: nl extremities to inspection Skin: other (Jaundice) Results Result Diagram: 05/28/16 0455 05/28/16 0455 Results 24 hrs Laboratory Tests Test 05/28/16 04:55 Alanine Aminotransferase (ALT/SGPT) 501 H Albumin 2.3 L Albumin/Globulin Ratio 0.63 Alkaline Phosphatase 214 H Anion Gap 12 Aspartate Amino Transf (AST/SGOT) 1270 H Basophils # 0.1 Basophils % 1.3 Blood Urea Nitrogen 7 Calcium Level 7.8 L Carbon Dioxide Level 24 Chloride Level 111 H Creatinine 0.67 Direct Bilirubin 13.00 H Eosinophils # 0.3 Eosinophils % 4.8 Ferritin 659.0 H Globulin 3.60 H Glucose Level 83 Hematocrit 30.9 L Hemoglobin 10.8 L Indirect Bilirubin 2.1 H Iron Level 165 H Lymphocytes # 2.2 Lymphocytes % 31.2 Magnesium Level 1.9 Mean Corpuscular Hemoglobin 27.4 L Mean Corpuscular Hemoglobin Concent 35.0 Mean Corpuscular Volume 78.4 L Mean Platelet Volume 10.7 H Monocytes # 1.2 H Monocytes % 16.6 H Neutrophils # 3.2 Neutrophils % 45.1 Nucleated Red Blood Cells # 0.0 Nucleated Red Blood Cells % 0.0 Percent Iron Saturation 62 H Platelet Count 270 Potassium Level 3.6 Red Blood Count 3.94 L Red Cell Distribution Width 28.8 H Sodium Level 143 Total Bilirubin 15.1 *H Total Iron Binding Capacity 268 Total Protein 5.9 L White Blood Count 7.1 Medications Medications Current Medications Ondansetron HCl (Zofran Inj) 4 mg Q6H PRN IV NAUSEA AND/OR VOMITING; Start 01/31 at 11:30 Magnesium Hydroxide (Milk Of Mag) 30 ml DAILY PRN PO CONSTIPATION; Start at 11:30 Bisacodyl (Dulcolax) 5 mg DAILY PRN PO CONSTIPATION; Start 05/25/16 at 11:30 Famotidine (Pepcid) 20 mg Q12 PO Last administered on 05/28/16 08:03; Admin Dose 20 MG; Start 05/25/16 at 21:00 Tramadol HCl 50 mg 50 mg Q6H PRN PO Pain Last administered on 05/26/16 01:19; Admin Dose 50 MG; Start 05/25/16 at 12:00 Sodium Chloride (NS) 1,000 ml @ 75 mls/hr [id number] IV Last administered on 05/28 09:36; Admin Dose 75 MLS/HR; Start 05/25/16 at 12:30 ANSLEY ROMERO May 28, 2016 16:40
[2016-05-28 20:12] LABS: CYTOMEGALOVIRUS ANTIBODY (IGG) < OR = 0.90
[2016-05-28 20:21] VITALS: BP 114/59; PULSE 69; RESP 16
[2016-05-29 06:25] LABS: ALBUMIN 2.3 g/dl (3.3-4.9)
[2016-05-29 06:26] LABS: POTASSIUM 4.2 mmol/L (3.5-5.1)
[2016-05-29 06:28] LABS: ALBUMIN/GLOBULIN RATIO 0.62; BILIRUBIN,DIRECT 13.5 mg/dl (0.00-0.20); BILIRUBIN,INDIRECT 2.1 mg/dl (0-1.1); CREATININE 0.64 mg/dl (0.44-1.00)
[2016-05-29 06:29] LABS: CALCIUM 7.9 mg/dl (8.4-10.2)
[2016-05-29 06:57] LABS: BILIRUBIN,TOTAL 15.6 mg/dl (0.2-1.3)
[2016-05-29 07:29] VITALS: BP 114/54; RESP 14
--- NOTE | 2016-05-29 07:53 | CONS ---
Date/Time of Note Date/Time of Note DATE: 05/29/16 TIME: 07:50 Assessment/Plan Assessment/Plan Additional Assessment/Plan Assessment: * Hyperbilirubinemia/abnormal liver function tests/hepatocellular pattern * Rule out acute hepatitis: Viral A, B, C, CMV, all neg * Rule out drug-induced. Unlikely as there is no history of exposure * Rule out obstructive although no dilatation of common bile duct will not support this possibility * MRCP: 1.Gallbladder is partially contracted, and demonstrates diffuse wall edema, most likely reactive secondary to underlying liver disease - correlate with liver function tests. No evidence of cholelithiasis or pericholecystic inflammation is identified. 2. Liver demonstrates scattered well-defined T2 hyperintensities, correlating to hypodensities on recent prior CT, likely benign hemangiomas. 3. No biliary dilatation or choledocholithiasis is identified. * Doubt pancreatic head neoplasm with negative CT for pancreatic mass or dilatation of the biliary tree * Rule out atypical presentation for sclerosing cholangitis/primary biliary cirrhosis * Distant history of right breast cancer/post lumpectomy plus radiation Plan: * Review autoimmune labs * Monitor liver function tests * If no specific diagnosis or trend to resolution resolution occurs must consider liver biopsy * Further recommendations depend on clinical course * Patient seen in collaboration with Dr. Sharp Consultation Date/Type/Reason Admit Date/Time May 25, 2016 at 11:40 Initial Consult Date 05/25/16 Type of Consultation: Gastroenterology 24 HR Interval Summary Free Text/Dictation No marked improvement in transaminases Denies abdominal pain Possible liver biopsy tomorrow Exam/Review of Systems Vital Signs Vitals Vital Signs Date Time Temp Pulse Resp B/P Pulse Ox O2 Delivery O2 Flow Rate FiO2 05/29/16 07:29 98.0 60 14 114/54 99 05/28/16 20:21 Room Air Intake and Output 05/28/16 05/28/16 05/29/16 15:00 23:00 07:00 Intake Total 2560 ml 525 ml Balance 2560 ml 525 ml Exam Constitutional: alert, oriented, other (Deeply jaundice), well developed Psych: nl mood/affect, no complaints Head: atraumatic, normocephalic Eyes: EOMI, PERRL, nl lids, other (Icteric conjunctiva) ENMT: nl external ears & nose, nl lips & teeth, nl nasal mucosa & septum Neck: non-tender, supple Respiratory: clear to auscultation, normal air movement Cardiovascular: nl pulses, regular rate and rhythm Gastrointestinal: bowel sounds, hepatomegaly (Approximately 4 cm below right costal margin), non-tender, soft No ascites, No distended, No mass, No rebound or guarding, No splenomegaly Musculoskeletal: nl extremities to inspection Extremities: normal pulses Neurological: DRAG OUT MAN II-XII intact, nl mental status, nl speech, nl strength Skin: nl turgor, other (Deeply jaundice), No rash or lesions Lymph: nl lymph nodes Results Result Diagram: 05/28/16 0455 05/29/16 0538 Results 24 hrs Laboratory Tests Test 05/29/16 05:38 Alanine Aminotransferase (ALT/SGPT) 514 H Albumin 2.3 L Albumin/Globulin Ratio 0.62 Alkaline Phosphatase 210 H Anion Gap 13 Aspartate Amino Transf (AST/SGOT) Blood Urea Nitrogen 7 Calcium Level 7.9 L Carbon Dioxide Level 23 Chloride Level 112 H Creatinine 0.64 Direct Bilirubin 13.50 H Globulin 3.70 H Glucose Level 85 Indirect Bilirubin 2.1 H Potassium Level 4.2 Sodium Level 144 Total Bilirubin 15.6 *H Total Protein 6.0 L Medications Medications Current Medications Ondansetron HCl (Zofran Inj) 4 mg Q6H PRN IV NAUSEA AND/OR VOMITING; Start 01/31 at 11:30 Magnesium Hydroxide (Milk Of Mag) 30 ml DAILY PRN PO CONSTIPATION; Start at 11:30 Bisacodyl (Dulcolax) 5 mg DAILY PRN PO CONSTIPATION; Start 05/25/16 at 11:30 Famotidine (Pepcid) 20 mg Q12 PO Last administered on 05/28/16 20:20; Admin Dose 20 MG; Start 05/25/16 at 21:00 Tramadol HCl 50 mg 50 mg Q6H PRN PO Pain Last administered on 05/26/16 01:19; Admin Dose 50 MG; Start 05/25/16 at 12:00 Sodium Chloride (NS) 1,000 ml @ 75 mls/hr [id number] IV Last administered on 05/28 22:05; Admin Dose 75 MLS/HR; Start 05/25/16 at 12:30 STANLEY MARTINEZ May 29, 2016 07:53
[2016-05-29] MEDS: FAMOTIDINE 20 MG TAB PO SCH ×2 (08:15→20:26)
[2016-05-29 13:00] LABS: MITOCHONDRIAL TB NEGATIVE (NEGATIVE)
[2016-05-29 14:41] LABS: ANA SCREEN NEGATIVE (NEGATIVE)
--- NOTE | 2016-05-29 14:54 | PN ---
Date/Time of Note Date/Time of Note DATE: 05/29/16 TIME: 14:11 Assessment/Plan VTE Prophylaxis VTE Prophylaxis Intervention: SCD's Lines/Catheters IV C[facility]ter Type (from [email or web address] Peripheral IV Urinary Cath still in place: No Assessment/Plan Chief Complaint/Hosp Course 1. Painless jaundice with transaminitis-stable MRCP shows no evidence of mass, hepatitis panel was negative GI consult appreciated autoimmune workup in progress, at this point antimitochondrial antibody is negative, MATILDE is pending continue to monitor LFTs, if liver enzymes do not improve liver biopsy will be considered 2. History of breast cancer No acute issues 3. Renal mass likely hemorrhagic cyst Monitor Prophylaxis: SCDs Problems: Subjective 24 Hr Interval Summary Constitutional: no complaints Exam/Review of Systems Vital Signs Vitals Vital Signs Date Time Temp Pulse Resp B/P Pulse Ox O2 Delivery O2 Flow Rate FiO2 05/29/16 07:29 98.0 60 14 114/54 99 05/28/16 20:21 Room Air Intake and Output 05/28/16 05/28/16 05/29/16 15:00 23:00 07:00 Intake Total 2560 ml 525 ml Balance 2560 ml 525 ml Exam Constitutional: alert, oriented Respiratory: clear to auscultation Cardiovascular: regular rate and rhythm Gastrointestinal: soft, No distended Musculoskeletal: nl extremities to inspection Skin: other (Jaundice) Results Result Diagram: 05/28/16 0455 05/29/16 0538 Results 24 hrs Laboratory Tests Test 05/29/16 05:38 Alanine Aminotransferase (ALT/SGPT) 514 H Albumin 2.3 L Albumin/Globulin Ratio 0.62 Alkaline Phosphatase 210 H Anion Gap 13 Aspartate Amino Transf (AST/SGOT) Blood Urea Nitrogen 7 Calcium Level 7.9 L Carbon Dioxide Level 23 Chloride Level 112 H Creatinine 0.64 Direct Bilirubin 13.50 H Globulin 3.70 H Glucose Level 85 Indirect Bilirubin 2.1 H Potassium Level 4.2 Sodium Level 144 Total Bilirubin 15.6 *H Total Protein 6.0 L Medications Medications Current Medications Ondansetron HCl (Zofran Inj) 4 mg Q6H PRN IV NAUSEA AND/OR VOMITING; Start 01/31 at 11:30 Magnesium Hydroxide (Milk Of Mag) 30 ml DAILY PRN PO CONSTIPATION; Start at 11:30 Bisacodyl (Dulcolax) 5 mg DAILY PRN PO CONSTIPATION; Start 05/25/16 at 11:30 Famotidine (Pepcid) 20 mg Q12 PO Last administered on 05/29/16 08:15; Admin Dose 20 MG; Start 05/25/16 at 21:00 Tramadol HCl 50 mg 50 mg Q6H PRN PO Pain Last administered on 05/26/16 01:19; Admin Dose 50 MG; Start 05/25/16 at 12:00 Sodium Chloride (NS) 1,000 ml @ 75 mls/hr [id number] IV Last administered on 05/28 22:05; Admin Dose 75 MLS/HR; Start 05/25/16 at 12:30 ANSLEY ROMERO May 29, 2016 14:21
[2016-05-29 19:26] VITALS: BP 111/53; RESP 20
[2016-05-29] MEDS: SOD CHLORIDE 0.9% 1,000 ML IV SCH ×2 (21:38→23:10)
[2016-05-30 07:28] VITALS: BP 99/53; RESP 16
[2016-05-30] MEDS: FAMOTIDINE 20 MG TAB PO SCH (08:13)
--- NOTE | 2016-05-30 09:46 | CONS ---
Date/Time of Note Date/Time of Note DATE: 05/30/16 TIME: 09:22 Assessment/Plan Assessment/Plan Additional Assessment/Plan Assessment: * Hyperbilirubinemia/abnormal liver function tests/hepatocellular pattern * Rule out acute hepatitis: Viral A, B, C, CMV, autoimmune, all neg * Rule out drug-induced. Pt started new supplement Quercetin roughly a month before symptom onset. Quercetin inhibits Cytochrome P450 2C9 substrates and Melatonin is a Cytochrome P450 2C9 substrate * Rule out obstructive although no dilatation of common bile duct will not support this possibility * MRCP: 1.Gallbladder is partially contracted, and demonstrates diffuse wall edema, most likely reactive secondary to underlying liver disease - correlate with liver function tests. No evidence of cholelithiasis or pericholecystic inflammation is identified. 2. Liver demonstrates scattered well-defined T2 hyperintensities, correlating to hypodensities on recent prior CT, likely benign hemangiomas. 3. No biliary dilatation or choledocholithiasis is identified. * Doubt pancreatic head neoplasm with negative CT for pancreatic mass or dilatation of the biliary tree * Rule out atypical presentation for sclerosing cholangitis/primary biliary cirrhosis * Distant history of right breast cancer/post lumpectomy plus radiation Plan: * Review liver biopsy results * Monitor liver function tests * Further recommendations depend on clinical course * Patient seen in collaboration with Dr. Sharp Consultation Date/Type/Reason Admit Date/Time May 25, 2016 at 11:40 Initial Consult Date 05/25/16 Type of Consultation: Gastroenterology 24 HR Interval Summary Free Text/Dictation Denies abdominal pain LFTs not improving Ultrasound-guided liver biopsy ordered stat today Hold all medications for 2 days to see if there are improvement in LFTs Exam/Review of Systems Vital Signs Vitals Vital Signs Date Time Temp Pulse Resp B/P Pulse Ox O2 Delivery O2 Flow Rate FiO2 05/30/16 07:28 98.3 65 16 99/53 99 05/28/16 20:21 Room Air Intake and Output 05/29/16 05/29/16 05/30/16 15:00 23:00 07:00 Intake Total 2665 ml 860 ml Balance 2665 ml 860 ml Exam Constitutional: alert, oriented, well developed Psych: nl mood/affect Head: normocephalic Eyes: EOMI, nl conjunctiva, nl lids ENMT: nl external ears & nose, nl lips & teeth, nl nasal mucosa & septum Respiratory: clear to auscultation, normal air movement Cardiovascular: regular rate and rhythm Gastrointestinal: soft, non-tender Musculoskeletal: nl extremities to inspection Neurological: FILING CLERK II-XII intact Results Result Diagram: 05/28/16 0455 05/29/16 0538 Results 24 hrs Laboratory Tests Test 05/30/16 07:00 Alanine Aminotransferase (ALT/SGPT) 607 H Alkaline Phosphatase 252 H Aspartate Amino Transf (AST/SGOT) 1629 H Direct Bilirubin 16.00 *H Total Bilirubin 16.0 H Medications Medications Current Medications Ondansetron HCl (Zofran Inj) 4 mg Q6H PRN IV NAUSEA AND/OR VOMITING; Start 01/31 at 11:30 Magnesium Hydroxide (Milk Of Mag) 30 ml DAILY PRN PO CONSTIPATION; Start at 11:30 Bisacodyl (Dulcolax) 5 mg DAILY PRN PO CONSTIPATION; Start 05/25/16 at 11:30 Famotidine (Pepcid) 20 mg Q12 PO Last administered on 05/30/16 08:13; Admin Dose 20 MG; Start 05/25/16 at 21:00 Tramadol HCl 50 mg 50 mg Q6H PRN PO Pain Last administered on 05/26/16 01:19; Admin Dose 50 MG; Start 05/25/16 at 12:00 Sodium Chloride (NS) 1,000 ml @ 75 mls/hr [id number] IV Last administered on 05/29 21:38; Admin Dose 75 MLS/HR; Start 05/25/16 at 12:30 STANLEY MARTINEZ May 30, 2016 09:35
[2016-05-30] MEDS: SOD CHLORIDE 0.9% 1,000 ML IV SCH (11:46)
[2016-05-30] MEDS ORDERED: LIDOCAINE 1% (MPF) 5 ML VIAL ONE (13:49)
[2016-05-30 14:30] VITALS: BP 131/64; PULSE 64; RESP 18
--- NOTE | 2016-05-30 14:51 | RADRPT ---
PROCEDURE: Ultrasound guided liver biopsy. CLINICAL INDICATION: Jaundice. Elevated liver function tests. TECHNIQUE: Informed consent was obtained. The procedure, risks, benefits, complications and alternatives were explained to the patient. Risks including bleeding and infection were explained. The patient unders tood and was willing to proceed. A procedural pause was performed. The patient's name, date of , and procedure to be performed w ere verified. Using local anesthetic, sterile technique and ultrasound guidance, an 18-gauge automated core biopsy needle was used to biopsy the right hepatic lobe. A single pass was made. Adequate tissue was obta ined. A dressing was applied. The patient tolerated procedure well. COMPARISON: MRI of the abdomen dated 05/27/2016. CT scan of the abdomen dated 05/25/2016. FINDINGS: Ultrasound imaging demonstrates the liver to be 1.6 cm deep to the skin. Ultrasound guidance was use d for biopsy of the right hepatic lobe. IMPRESSION: 1. Successful ultrasound guided liver biopsy. RPTAT: QQ .Aidan Chavez MD, MD Date Time Electronically viewed and signed by .Aidan Chavez MD, on 05/30/2016 14:51 .R/
--- NOTE | 2016-05-30 15:18 | PN ---
Date/Time of Note Date/Time of Note DATE: 05/30/16 TIME: 15:16 Assessment/Plan VTE Prophylaxis VTE Prophylaxis Intervention: SCD's Lines/Catheters IV [facility] Type ([facility] Peripheral IV Urinary Cath still in place: No Assessment/Plan Chief Complaint/Hosp Course 1. Painless jaundice with transaminitis-stable MRCP shows no evidence of mass, hepatitis panel was negative GI consult appreciated autoimmune workup was negative with negative MATILED and negative antimitochondrial antibody LFTs have been increasing and hence biopsy of the liver was done today, follow- up on pathology 2. History of breast cancer No acute issues 3. Renal mass likely hemorrhagic cyst Monitor Prophylaxis: SCDs Problems: Subjective 24 Hr Interval Summary Constitutional: no complaints Exam/Review of Systems Vital Signs Vitals Vital Signs Date Time Temp Pulse Resp B/P Pulse Ox O2 Delivery O2 Flow Rate FiO2 05/30/16 07:28 98.3 65 16 99/53 99 05/28/16 20:21 Room Air Intake and Output 05/29/16 05/29/16 05/30/16 15:00 23:00 07:00 Intake Total 2665 ml 860 ml Balance 2665 ml 860 ml Exam Constitutional: alert, oriented Respiratory: clear to auscultation Cardiovascular: regular rate and rhythm Gastrointestinal: soft, No distended Musculoskeletal: nl extremities to inspection Skin: other (Jaundice) Results Result Diagram: 05/28/16 0455 05/29/16 0538 Results 24 hrs Laboratory Tests Test 05/30/16 07:00 Alanine Aminotransferase (ALT/SGPT) 607 H Alkaline Phosphatase 252 H Aspartate Amino Transf (AST/SGOT) 1629 H Direct Bilirubin 16.00 *H Total Bilirubin 16.0 H Medications Medications Current Medications Ondansetron HCl (Zofran Inj) 4 mg Q6H PRN IV NAUSEA AND/OR VOMITING; Start 01/31 at 11:30 Magnesium Hydroxide (Milk Of Mag) 30 ml DAILY PRN PO CONSTIPATION; Start at 11:30; Status Future hold Bisacodyl (Dulcolax) 5 mg DAILY PRN PO CONSTIPATION; Start 05/25/16 at 11:30 Famotidine (Pepcid) 20 mg Q12 PO Last administered on 05/30/16t 08:13; Admin Dose 20 MG; Start 05/25/16 at 21:00; Status Future hold Tramadol HCl 50 mg 50 mg Q6H PRN PO Pain Last administered on 05/26/16 01:19; Admin Dose 50 MG; Start 05/25/16 at 12:00; Status Future hold Sodium Chloride (NS) 1,000 ml @ 75 mls/hr [id number] IV Last administered on 05/30 11:46; Admin Dose 75 MLS/HR; Start 05/25/16 at 12:30 ANSLEY ROMERO May 30, 2016 15:17
[2016-05-30 20:01] VITALS: BP 106/59; RESP 18
[2016-05-31] MEDS: SOD CHLORIDE 0.9% 1,000 ML IV SCH ×2 (01:33→18:57)
[2016-05-31 05:24] LABS: ADD SCAN DIFF NO
[2016-05-31 05:40] LABS: ABNORMAL IP MESSAGE 1; BASOPHIL # 0.1 10^3/ul (0.0-0.1); BASOPHILS % 1.5 % (0.0-2.0); EOSINOPHILS # 0.4 10^3/ul (0.0-0.5); EOSINOPHILS % 4.9 % (0.0-7.0); HEMATOCRIT 35.2 % (37.0-47.0); HEMOGLOBIN 11.9 g/dl (12.0-16.0); LYMPHOCYTES # 2.4 10^3/ul (0.8-2.9); LYMPHOCYTES % 28.7 % (15.0-51.0); MEAN CORPUSCULAR HEMOGLOBIN 26.8 pg (29.0-33.0); MEAN CORPUSCULAR HGB CONC 33.8 g/dl (32.0-37.0); MEAN CORPUSCULAR VOLUME 79.3 fl (82.0-101.0); MEAN PLATELET VOLUME 10.2 fl (7.4-10.4); MONOCYTE # 1.3 10^3/ul (0.3-0.9); MONOCYTES % 15.4 % (0.0-11.0); NEUTROPHIL # 4.1 10^3/ul (1.6-7.5); NEUTROPHILS % 48.6 % (39.0-77.0); PLATELET COUNT 297 10^3/UL (140-415); RED BLOOD COUNT 4.44 10^6/ul (4.20-5.40); WHITE BLOOD COUNT 8.5 10^3/ul (4.8-10.8)
[2016-05-31 05:56] LABS: ALBUMIN 2.6 g/dl (3.3-4.9)
[2016-05-31 05:57] LABS: POTASSIUM 4.1 mmol/L (3.5-5.1)
[2016-05-31 05:59] LABS: ALBUMIN/GLOBULIN RATIO 0.63; BILIRUBIN,INDIRECT 2.4 mg/dl (0-1.1); BILIRUBIN,TOTAL 17.5 mg/dl (0.2-1.3); CREATININE 0.68 mg/dl (0.44-1.00); TOTAL PROTEIN 6.7 g/dl (6.1-8.1)
[2016-05-31 07:06] LABS: BILIRUBIN,DIRECT 15.1 mg/dl (0.00-0.20)
[2016-05-31 07:31] VITALS: BP 110/54; RESP 18
--- NOTE | 2016-05-31 15:24 | PN ---
Date/Time of Note Date/Time of Note DATE: 05/31/16 TIME: 15:23 Assessment/Plan VTE Prophylaxis VTE Prophylaxis Intervention: SCD's Lines/Catheters IV [facility]ter Type (from [facility]): Peripheral IV Urinary Cath still in place: No Assessment/Plan Chief Complaint/Hosp Course 1. Painless jaundice with transaminitis-stable MRCP shows no evidence of mass, hepatitis panel was negative GI consult appreciated autoimmune workup was negative with negative MATILDE and negative antimitochondrial antibody LFTs had been increasing and hence biopsy of the liver was done yesterday, follow-up on pathology 2. History of breast cancer No acute issues 3. Renal mass likely hemorrhagic cyst Monitor Prophylaxis: SCDs Problems: Subjective 24 Hr Interval Summary Constitutional: no complaints Exam/Review of Systems Vital Signs Vitals Vital Signs Date Time Temp Pulse Resp B/P Pulse Ox O2 Delivery O2 Flow Rate FiO2 05/31/16 07:31 97.5 67 18 110/54 98 05/30/16 14:30 Room Air Intake and Output 05/30/16 05/30/16 05/31/16 14:59 22:59 06:59 Intake Total 500 ml 860 ml 800 ml Balance 500 ml 860 ml 800 ml Exam Constitutional: alert, oriented Respiratory: clear to auscultation Cardiovascular: regular rate and rhythm Gastrointestinal: soft, No distended Musculoskeletal: nl extremities to inspection Results Result Diagram: 05/31/16 0510 05/31/16 0510 Results 24 hrs Laboratory Tests Test 05/31/16 05:10 05/31/16 09:06 Alanine Aminotransferase (ALT/SGPT) 561 H Albumin 2.6 L Albumin/Globulin Ratio 0.63 Alkaline Phosphatase 229 H Anion Gap 14 Aspartate Amino Transf (AST/SGOT) 1585 H Basophils # 0.1 Basophils % 1.5 Blood Urea Nitrogen 7 Calcium Level 8.0 L Carbon Dioxide Level 27 Chloride Level 108 Creatinine 0.68 Direct Bilirubin 15.10 H Eosinophils # 0.4 Eosinophils % 4.9 Globulin 4.10 H Glucose Level 84 Hematocrit 35.2 L Hemoglobin 11.9 L Indirect Bilirubin 2.4 H Lymphocytes # 2.4 Lymphocytes % 28.7 Mean Corpuscular Hemoglobin 26.8 L Mean Corpuscular Hemoglobin Concent 33.8 Mean Corpuscular Volume 79.3 L Mean Platelet Volume 10.2 Monocytes # 1.3 H Monocytes % 15.4 H Neutrophils # 4.1 Neutrophils % 48.6 Nucleated Red Blood Cells # 0.0 Nucleated Red Blood Cells % 0.0 Platelet Count 297 Potassium Level 4.1 Red Blood Count 4.44 Red Cell Distribution Width 31.0 H Sodium Level 145 H Total Bilirubin 17.5 H Total Protein 6.7 White Blood Count 8.5 HIV (1&2) Antibody NEGATIVE Medications Medications Current Medications Ondansetron HCl (Zofran Inj) 4 mg Q6H PRN IV NAUSEA AND/OR VOMITING; Start 01/31 at 11:30 Magnesium Hydroxide (Milk Of Mag) 30 ml DAILY PRN PO CONSTIPATION; Start at 11:30; Status Future hold Bisacodyl (Dulcolax) 5 mg DAILY PRN PO CONSTIPATION; Start 05/25/16 at 11:30 Famotidine (Pepcid) 20 mg Q12 PO Last administered on 05/30/16 08:13; Admin Dose 20 MG; Start 05/25/16 at 21:00; Status Future hold Tramadol HCl 50 mg 50 mg Q6H PRN PO Pain Last administered on 05/26/16 01:19; Admin Dose 50 MG; Start 05/25/16 at 12:00; Status Future hold Sodium Chloride (NS) 1,000 ml @ 75 mls/hr [id number] IV Last administered on 05/31 01:33; Admin Dose 75 MLS/HR; Start 05/25/16 at 12:30 ANSLEY ROMERO May 31, 2016 15:24
[2016-05-31 20:31] VITALS: BP 113/59; RESP 18
[2016-06-01] MEDS: SOD CHLORIDE 0.9% 1,000 ML IV SCH ×2 (03:47→11:48)
[2016-06-01 05:14] LABS: ADD SCAN DIFF NO
[2016-06-01 05:22] LABS: ABNORMAL IP MESSAGE 1; BASOPHIL # 0.1 10^3/ul (0.0-0.1); BASOPHILS % 1.7 % (0.0-2.0); EOSINOPHILS # 0.5 10^3/ul (0.0-0.5); EOSINOPHILS % 5.8 % (0.0-7.0); HEMATOCRIT 36.4 % (37.0-47.0); HEMOGLOBIN 12.3 g/dl (12.0-16.0); LYMPHOCYTES # 2.1 10^3/ul (0.8-2.9); LYMPHOCYTES % 27.6 % (15.0-51.0); MEAN CORPUSCULAR HEMOGLOBIN 26.9 pg (29.0-33.0); MEAN CORPUSCULAR HGB CONC 33.8 g/dl (32.0-37.0); MEAN CORPUSCULAR VOLUME 79.5 fl (82.0-101.0); MEAN PLATELET VOLUME 10.5 fl (7.4-10.4); MONOCYTE # 1.2 10^3/ul (0.3-0.9); MONOCYTES % 15.5 % (0.0-11.0); NEUTROPHIL # 3.7 10^3/ul (1.6-7.5); NEUTROPHILS % 48.4 % (39.0-77.0); PLATELET COUNT 278 10^3/UL (140-415); RED BLOOD COUNT 4.58 10^6/ul (4.20-5.40); RED CELL DISTRIBUTION WIDTH 31.8 % (11.5-14.5); WHITE BLOOD COUNT 7.7 10^3/ul (4.8-10.8)
[2016-06-01 05:45] LABS: ALBUMIN 2.5 g/dl (3.3-4.9)
[2016-06-01 05:46] LABS: POTASSIUM 4.2 mmol/L (3.5-5.1)
[2016-06-01 05:48] LABS: ALBUMIN/GLOBULIN RATIO 0.62; BILIRUBIN,DIRECT 14.9 mg/dl (0.00-0.20); BILIRUBIN,INDIRECT 2.6 mg/dl (0-1.1); BILIRUBIN,TOTAL 17.5 mg/dl (0.2-1.3); CREATININE 0.69 mg/dl (0.44-1.00); TOTAL PROTEIN 6.5 g/dl (6.1-8.1)
[2016-06-01 05:49] LABS: CALCIUM 8.3 mg/dl (8.4-10.2)
[2016-06-01 08:00] VITALS: BP 90/51; PULSE 69; RESP 18
[2016-06-01] MEDS: FAMOTIDINE 20 MG TAB PO SCH ×2 (09:00→21:00)
--- NOTE | 2016-06-01 12:50 | PN ---
Date/Time of Note Date/Time of Note DATE: 06/01/16 TIME: 12:42 Assessment/Plan VTE Prophylaxis VTE Prophylaxis Intervention: SCD's Lines/Catheters IV Catheter Type (from [facility]): Peripheral IV Urinary Cath still in place: No Assessment/Plan Assessment/Plan Assessment: * Hyperbilirubinemia/abnormal liver function tests/hepatocellular pattern * Rule out acute hepatitis: Viral A, B, C, CMV, autoimmune, all neg * Rule out drug-induced. Pt started new supplement Quercetin roughly a month before symptom onset. Quercetin inhibits Cytochrome P450 2C9 substrates and Melatonin is a Cytochrome P450 2C9 substrate. Unlikely to be playing a role * Rule out obstructive although no dilatation of common bile duct will not support this possibility * MRCP: 1.Gallbladder is partially contracted, and demonstrates diffuse wall edema, most likely reactive secondary to underlying liver disease - correlate with liver function tests. No evidence of cholelithiasis or pericholecystic inflammation is identified. 2. Liver demonstrates scattered well-defined T2 hyperintensities, correlating to hypodensities on recent prior CT, likely benign hemangiomas. 3. No biliary dilatation or choledocholithiasis is identified. * NO pancreatic head neoplasm with negative CT for pancreatic mass or dilatation of the biliary tree * Rule out atypical presentation for sclerosing cholangitis/primary biliary cirrhosis * Distant history of right breast cancer/post lumpectomy plus radiation Plan: * Review liver biopsy results * Monitor liver function tests * Further recommendations depend on clinical course Subjective 24 Hr Interval Summary Free Text/Dictation Course reviewed with nursing staff Patient reports no significant abdominal pain or discomfort Tolerating diet without difficulties Remains deeply jaundiced No pain at liver biopsy site Liver function tests essentially unchanged Awaiting liver biopsy histological exam No evidence of liver functional impairment Exam/Review of Systems Vital Signs Vitals Vital Signs Date Time Temp Pulse Resp B/P Pulse Ox O2 Delivery O2 Flow Rate FiO2 05/31/16 20:31 98.2 64 18 113/59 100 05/30/16 14:30 Room Air Intake and Output 05/31/16 05/31/16 06/01/16 15:00 23:00 07:00 Intake Total 2620 ml 1150 ml Output Total 3 ml Balance 2617 ml 1150 ml Exam Constitutional: alert, oriented, well developed, deeply jaundiced Psych: nl mood/affect Head: normocephalic Eyes: Icteric conjunctiva EOMI, nl conjunctiva, nl lids ENMT: nl external ears & nose, nl lips & teeth, nl nasal mucosa & septum Respiratory: clear to auscultation, normal air movement Cardiovascular: regular rate and rhythm Gastrointestinal: soft, non-tender Musculoskeletal: nl extremities to inspection 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 Results Result Diagram: 06/01/16 0456 06/01/16 0456 Results 24 hrs Laboratory Tests Test 06/01/16 04:56 Alanine Aminotransferase (ALT/SGPT) 536 H Albumin 2.5 L Albumin/Globulin Ratio 0.62 Alkaline Phosphatase 206 H Anion Gap 15 Aspartate Amino Transf (AST/SGOT) Basophils # 0.1 Basophils % 1.7 Blood Urea Nitrogen 7 Calcium Level 8.3 L Carbon Dioxide Level 18 L Chloride Level 113 H Creatinine 0.69 Direct Bilirubin 14.90 H Eosinophils # 0.5 Eosinophils % 5.8 Globulin 4.00 H Glucose Level 79 Hematocrit 36.4 L Hemoglobin 12.3 Indirect Bilirubin 2.6 H Lymphocytes # 2.1 Lymphocytes % 27.6 Mean Corpuscular Hemoglobin 26.9 L Mean Corpuscular Hemoglobin Concent 33.8 Mean Corpuscular Volume 79.5 L Mean Platelet Volume 10.5 H Monocytes # 1.2 H Monocytes % 15.5 H Neutrophils # 3.7 Neutrophils % 48.4 Nucleated Red Blood Cells # 0.0 Nucleated Red Blood Cells % 0.0 Platelet Count 278 Potassium Level 4.2 Red Blood Count 4.58 Red Cell Distribution Width 31.8 H Sodium Level 142 Total Bilirubin 17.5 H Total Protein 6.5 White Blood Count 7.7 Medications Medications Current Medications Ondansetron HCl (Zofran Inj) 4 mg Q6H PRN IV NAUSEA AND/OR VOMITING; Start 01/31 at 11:30 Magnesium Hydroxide (Milk Of Mag) 30 ml DAILY PRN PO CONSTIPATION; Start at 11:30; Status Future hold Bisacodyl (Dulcolax) 5 mg DAILY PRN PO CONSTIPATION; Start 05/25/16 at 11:30 Famotidine (Pepcid) 20 mg Q12 PO Last administered on 05/30/16 08:13; Admin Dose 20 MG; Start 05/25/16 at 21:00; Status Future hold Tramadol HCl 50 mg 50 mg Q6H PRN PO Pain Last administered on 05/26/16 01:19; Admin Dose 50 MG; Start 05/25/16 at 12:00; Status Future hold Sodium Chloride (NS) 1,000 ml @ 75 mls/hr [id number] IV Last administered on 06/01t 11:48; Admin Dose 75 MLS/HR; Start 05/25/16 at 12:30 LESTER DICK MD Jun 01, 2016 12:50
--- NOTE | 2016-06-01 17:09 | PN ---
Date/Time of Note Date/Time of Note DATE: 06/01/16 TIME: 17:05 Assessment/Plan VTE Prophylaxis VTE Prophylaxis Intervention: SCD's Lines/Catheters IV C[facility] Type (from [facility] Peripheral IV Urinary Cath still in place: No Assessment/Plan Chief Complaint/Hosp Course 1. 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 History of breast cancer No acute issues 3. Renal mass likely hemorrhagic cyst Monitor Prophylaxis: SCDs Problems: Subjective 24 Hr Interval Summary Constitutional: no complaints Exam/Review of Systems Vital Signs Vitals Vital Signs Date Time Temp Pulse Resp B/P Pulse Ox O2 Delivery O2 Flow Rate FiO2 05/31/16 20:31 98.2 64 18 113/59 100 05/30/16 14:30 Room Air Intake and Output 05/31/16 05/31/16 06/01/16 15:00 23:00 07:00 Intake Total 2620 ml 1150 ml Output Total 3 ml Balance 2617 ml 1150 ml Exam Constitutional: alert, oriented Respiratory: clear to auscultation Cardiovascular: regular rate and rhythm Gastrointestinal: soft, No distended Musculoskeletal: nl extremities to inspection Skin: other (Jaundice) Results Result Diagram: 06/01/16 0456 06/01/16 0456 Results 24 hrs Laboratory Tests Test 06/01/16 04:56 Alanine Aminotransferase (ALT/SGPT) 536 H Albumin 2.5 L Albumin/Globulin Ratio 0.62 Alkaline Phosphatase 206 H Anion Gap 15 Aspartate Amino Transf (AST/SGOT) Basophils # 0.1 Basophils % 1.7 Blood Urea Nitrogen 7 Calcium Level 8.3 L Carbon Dioxide Level 18 L Chloride Level 113 H Creatinine 0.69 Direct Bilirubin 14.90 H Eosinophils # 0.5 Eosinophils % 5.8 Globulin 4.00 H Glucose Level 79 Hematocrit 36.4 L Hemoglobin 12.3 Indirect Bilirubin 2.6 H Lymphocytes # 2.1 Lymphocytes % 27.6 Mean Corpuscular Hemoglobin 26.9 L Mean Corpuscular Hemoglobin Concent 33.8 Mean Corpuscular Volume 79.5 L Mean Platelet Volume 10.5 H Monocytes # 1.2 H Monocytes % 15.5 H Neutrophils # 3.7 Neutrophils % 48.4 Nucleated Red Blood Cells # 0.0 Nucleated Red Blood Cells % 0.0 Platelet Count 278 Potassium Level 4.2 Red Blood Count 4.58 Red Cell Distribution Width 31.8 H Sodium Level 142 Total Bilirubin 17.5 H Total Protein 6.5 White Blood Count 7.7 Medications Medications Current Medications Ondansetron HCl (Zofran Inj) 4 mg Q6H PRN IV NAUSEA AND/OR VOMITING; Start 01/31 at 11:30 Magnesium Hydroxide (Milk Of Mag) 30 ml DAILY PRN PO CONSTIPATION; Start at 11:30; Status Future hold Bisacodyl (Dulcolax) 5 mg DAILY PRN PO CONSTIPATION; Start 05/25/16 at 11:30 Famotidine (Pepcid) 20 mg Q12 PO Last administered on 05/30/16 08:13; Admin Dose 20 MG; Start 05/25/16 at 21:00; Status Future hold Tramadol HCl 50 mg 50 mg Q6H PRN PO Pain Last administered on 05/26/16 01:19; Admin Dose 50 MG; Start 05/25/16 at 12:00; Status Future hold Sodium Chloride (NS) 1,000 ml @ 75 mls/hr [id number] IV Last administered on 06/01 11:48; Admin Dose 75 MLS/HR; Start 05/25/16 at 12:30 ANSLEY ROMERO Jun 01, 2016 17:08
[2016-06-01] MEDS: predniSOLONE 5 MG TAB PO SCH (18:57)
[2016-06-01 20:00] VITALS: BP 114/58; PULSE 64; RESP 20
[2016-06-01 21:56] LABS: VARICELLA-ZOSTER VIRUS AB IgM 0.24
[2016-06-02] MEDS: SOD CHLORIDE 0.9% 1,000 ML IV SCH ×4 (03:34→22:30)
[2016-06-02 05:20] LABS: ADD SCAN DIFF NO
[2016-06-02 05:29] LABS: ABNORMAL IP MESSAGE 1; BASOPHILS % 0.5 % (0.0-2.0); EOSINOPHILS % 0.2 % (0.0-7.0); HEMATOCRIT 40.4 % (37.0-47.0); HEMOGLOBIN 13.4 g/dl (12.0-16.0); LYMPHOCYTES # 1.5 10^3/ul (0.8-2.9); LYMPHOCYTES % 18.3 % (15.0-51.0); MEAN CORPUSCULAR HEMOGLOBIN 26.3 pg (29.0-33.0); MEAN CORPUSCULAR HGB CONC 33.2 g/dl (32.0-37.0); MEAN CORPUSCULAR VOLUME 79.2 fl (82.0-101.0); MEAN PLATELET VOLUME 10.4 fl (7.4-10.4); MONOCYTE # 0.1 10^3/ul (0.3-0.9); NEUTROPHIL # 6.6 10^3/ul (1.6-7.5); NEUTROPHILS % 79.2 % (39.0-77.0); PLATELET COUNT 458 10^3/UL (140-415); RED CELL DISTRIBUTION WIDTH 32.1 % (11.5-14.5); WHITE BLOOD COUNT 8.3 10^3/ul (4.8-10.8)
[2016-06-02 05:38] LABS: ALBUMIN 3.2 g/dl (3.3-4.9)
[2016-06-02 05:41] LABS: BILIRUBIN,INDIRECT 2.7 mg/dl (0-1.1); BILIRUBIN,TOTAL 21.1 mg/dl (0.2-1.3); CREATININE 0.7 mg/dl (0.44-1.00)
[2016-06-02 05:42] LABS: ALBUMIN/GLOBULIN RATIO 0.65; CALCIUM 8.5 mg/dl (8.4-10.2); TOTAL PROTEIN 8.1 g/dl (6.1-8.1)
[2016-06-02 06:09] LABS: BILIRUBIN,DIRECT 18.4 mg/dl (0.00-0.20)
[2016-06-02 08:05] VITALS: BP 100/52; RESP 18
[2016-06-02] MEDS: predniSOLONE 5 MG TAB PO SCH (08:24)
[2016-06-02] MEDS: FAMOTIDINE 20 MG TAB PO SCH ×2 (08:26→21:00)
--- NOTE | 2016-06-02 09:35 | PN ---
Date/Time of Note Date/Time of Note DATE: 06/02/16 TIME: 09:28 Assessment/Plan VTE Prophylaxis VTE Prophylaxis Intervention: SCD's Lines/Catheters IV [facility] Type (from [facility]): Peripheral IV Urinary Cath still in place: No Assessment/Plan Assessment/Plan Assessment: * Hyperbilirubinemia/abnormal liver function tests/hepatocellular pattern * Rule out acute hepatitis: Viral A, B, C, CMV neg. ASMA positive titer 1:80 suggestive of autoimmune hepatitis * Rule out drug-induced. Pt started new supplement Quercetin roughly a month before symptom onset. Quercetin inhibits Cytochrome P450 2C9 substrates and Melatonin is a Cytochrome P450 2C9 substrate. Unlikely to be playing a role * Rule out obstructive although no dilatation of common bile duct will not support this possibility * MRCP: 1.Gallbladder is partially contracted, and demonstrates diffuse wall edema, most likely reactive secondary to underlying liver disease - correlate with liver function tests. No evidence of cholelithiasis or pericholecystic inflammation is identified. 2. Liver demonstrates scattered well-defined T2 hyperintensities, correlating to hypodensities on recent prior CT, likely benign hemangiomas. 3. No biliary dilatation or choledocholithiasis is identified. * NO pancreatic head neoplasm with negative CT for pancreatic mass or dilatation of the biliary tree * Rule out atypical presentation for sclerosing cholangitis/primary biliary cirrhosis * Distant history of right breast cancer/post lumpectomy plus radiation Plan: * Review liver biopsy results as soon as possible * Patient was started on prednisone 60 mg daily yesterday * Will add anti-actin antibodies (more specific for autoimmune hepatitis) * Monitor liver function tests * We will also obtain TPMT phenotype and enzyme activity for possible addition of Azathioprine to therapy * Further recommendations depend on clinical course Subjective 24 Hr Interval Summary Free Text/Dictation Course reviewed with nursing staff Patient reports feeling well with no significant abdominal pain or discomfort Tolerating diet without difficulties Remains deeply jaundiced On placement muscle antibody returned POSITIVE titer 1:80, MATILDE is negative Liver function tests essentially unchanged, bilirubin increased Awaiting liver biopsy histological exam Started on prednisolone 60 mg with suspicious of autoimmune hepatitis We will review biopsy as soon as possible and will add anti-actin antibodies which are more specific for autoimmune hepatitis Exam/Review of Systems Vital Signs Vitals Vital Signs Date Time Temp Pulse Resp B/P Pulse Ox O2 Delivery O2 Flow Rate FiO2 06/02/16 08:05 97.7 66 18 100/52 100 06/01/16 20:00 Room Air Intake and Output 06/01/16 06/01/16 06/02/16 15:00 23:00 07:00 Intake Total 250 ml 300 ml 1090 ml Balance 250 ml 300 ml 1090 ml Exam Constitutional: alert, oriented, well developed, deeply jaundiced Psych: nl mood/affect Head: normocephalic Eyes: Icteric conjunctiva EOMI, nl conjunctiva, nl lids ENMT: nl external ears & nose, nl lips & teeth, nl nasal mucosa & septum Respiratory: clear to auscultation, normal air movement Cardiovascular: regular rate and rhythm Gastrointestinal: soft, non-tender Musculoskeletal: nl extremities to inspection 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 Results Result Diagram: 06/02/16 0434 06/02/16 0435 Results 24 hrs Laboratory Tests Test 06/02/16 04:34 06/02/16 04:35 Basophils # 0.0 Basophils % 0.5 Eosinophils # 0.0 Eosinophils % 0.2 Hematocrit 40.4 Hemoglobin 13.4 Lymphocytes # 1.5 Lymphocytes % 18.3 Mean Corpuscular Hemoglobin 26.3 L Mean Corpuscular Hemoglobin Concent 33.2 Mean Corpuscular Volume 79.2 L Mean Platelet Volume 10.4 Monocytes # 0.1 L Monocytes % 1.0 Neutrophils # 6.6 Neutrophils % 79.2 H Nucleated Red Blood Cells # 0.0 Nucleated Red Blood Cells % 0.0 Platelet Count 458 #H Red Blood Count 5.10 Red Cell Distribution Width 32.1 H White Blood Count 8.3 Alanine Aminotransferase (ALT/SGPT) 578 H Albumin 3.2 L Albumin/Globulin Ratio 0.65 Alkaline Phosphatase 258 H Anion Gap 18 H Aspartate Amino Transf (AST/SGOT) 1459 H Blood Urea Nitrogen 8 Calcium Level 8.5 Carbon Dioxide Level 23 Chloride Level 109 Creatinine 0.70 Direct Bilirubin 18.40 *H Globulin 4.90 H Glucose Level 137 # Indirect Bilirubin 2.7 H Potassium Level 4.0 Sodium Level 146 H Total Bilirubin 21.1 H Total Protein 8.1 Medications Medications Current Medications Ondansetron HCl (Zofran Inj) 4 mg Q6H PRN IV NAUSEA AND/OR VOMITING; Start 01/31 at 11:30 Magnesium Hydroxide (Milk Of Mag) 30 ml DAILY PRN PO CONSTIPATION; Start at 11:30; Status Future hold Bisacodyl (Dulcolax) 5 mg DAILY PRN PO CONSTIPATION; Start 05/25/16 at 11:30 Famotidine (Pepcid) 20 mg Q12 PO Last administered on 05/30/16 08:13; Admin Dose 20 MG; Start 05/25/16 at 21:00; Status Future hold Tramadol HCl 50 mg 50 mg Q6H PRN PO Pain Last administered on 05/26/16 01:19; Admin Dose 50 MG; Start 05/25/16 at 12:00; Status Future hold Sodium Chloride (NS) 1,000 ml @ 75 mls/hr [id number] IV Last administered on 06/02 03:34; Admin Dose 75 MLS/HR; Start 05/25/16 at 12:30 Prednisolone (Prednisolone) 60 mg DAILY PO Last administered on 06/02/16 08:24 ; Admin Dose 60 MG; Start 06/01/16 at 18:30 LESTER DICK MD Jun 02, 2016 09:35
--- NOTE | 2016-06-02 11:45 | PN ---
Date/Time of Note Date/Time of Note DATE: 06/02/16 TIME: 11:42 Assessment/Plan VTE Prophylaxis VTE Prophylaxis Intervention: SCD's Lines/Catheters IV [facility] Type (from [facility]): Peripheral IV Urinary Cath still in place: No Assessment/Plan Chief Complaint/Hosp Course 1. 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 History of breast cancer No acute issues 3. Renal mass likely hemorrhagic cyst Monitor Prophylaxis: SCDs Problems: Subjective 24 Hr Interval Summary Constitutional: no complaints Exam/Review of Systems Vital Signs Vitals Vital Signs Date Time Temp Pulse Resp B/P Pulse Ox O2 Delivery O2 Flow Rate FiO2 06/02/16 08:05 97.7 66 18 100/52 100 06/01/16 20:00 Room Air Intake and Output 06/01/16 06/01/16 06/02/16 15:00 23:00 07:00 Intake Total 250 ml 300 ml 1090 ml Balance 250 ml 300 ml 1090 ml Exam Constitutional: alert, oriented Respiratory: clear to auscultation Cardiovascular: regular rate and rhythm Gastrointestinal: non-tender, soft, No distended Musculoskeletal: nl extremities to inspection Skin: other (Jaundice) Results Result Diagram: 06/02/16 0434 06/02/16 0435 Results 24 hrs Laboratory Tests Test 06/02/16 04:34 06/02/16 04:35 Basophils # 0.0 Basophils % 0.5 Eosinophils # 0.0 Eosinophils % 0.2 Hematocrit 40.4 Hemoglobin 13.4 Lymphocytes # 1.5 Lymphocytes % 18.3 Mean Corpuscular Hemoglobin 26.3 L Mean Corpuscular Hemoglobin Concent 33.2 Mean Corpuscular Volume 79.2 L Mean Platelet Volume 10.4 Monocytes # 0.1 L Monocytes % 1.0 Neutrophils # 6.6 Neutrophils % 79.2 H Nucleated Red Blood Cells # 0.0 Nucleated Red Blood Cells % 0.0 Platelet Count 458 #H Red Blood Count 5.10 Red Cell Distribution Width 32.1 H White Blood Count 8.3 Alanine Aminotransferase (ALT/SGPT) 578 H Albumin 3.2 L Albumin/Globulin Ratio 0.65 Alkaline Phosphatase 258 H Anion Gap 18 H Aspartate Amino Transf (AST/SGOT) 1459 H Blood Urea Nitrogen 8 Calcium Level 8.5 Carbon Dioxide Level 23 Chloride Level 109 Creatinine 0.70 Direct Bilirubin 18.40 *H Globulin 4.90 H Glucose Level 137 # Indirect Bilirubin 2.7 H Potassium Level 4.0 Sodium Level 146 H Total Bilirubin 21.1 H Total Protein 8.1 Medications Medications Current Medications Ondansetron HCl (Zofran Inj) 4 mg Q6H PRN IV NAUSEA AND/OR VOMITING; Start 01/31 at 11:30 Magnesium Hydroxide (Milk Of Mag) 30 ml DAILY PRN PO CONSTIPATION; Start at 11:30; Status Future hold Bisacodyl (Dulcolax) 5 mg DAILY PRN PO CONSTIPATION; Start 05/25/16 at 11:30 Famotidine (Pepcid) 20 mg Q12 PO Last administered on 05/30/16 08:13; Admin Dose 20 MG; Start 05/25/16 at 21:00; Status Future hold Tramadol HCl 50 mg 50 mg Q6H PRN PO Pain Last administered on 05/26/16 01:19; Admin Dose 50 MG; Start 05/25/16 at 12:00; Status Future hold Sodium Chloride (NS) 1,000 ml @ 75 mls/hr [id number] IV Last administered on 06/02 03:34; Admin Dose 75 MLS/HR; Start 05/25/16 at 12:30 Prednisolone (Prednisolone) 60 mg DAILY PO Last administered on 06/02/16 08:24 ; Admin Dose 60 MG; Start 06/01/16 at 18:30 ANSLEY ROMERO Jun 02, 2016 11:44
[2016-06-02 19:58] VITALS: BP 106/57; RESP 18
[2016-06-03 06:11] LABS: ABNORMAL IP MESSAGE 1; HEMATOCRIT 32.7 % (37.0-47.0); MEAN CORPUSCULAR HEMOGLOBIN 26.9 pg (29.0-33.0); MEAN CORPUSCULAR HGB CONC 33.6 g/dl (32.0-37.0); MEAN PLATELET VOLUME 10.6 fl (7.4-10.4); PLATELET COUNT 364 10^3/UL (140-415); RED BLOOD COUNT 4.09 10^6/ul (4.20-5.40); RED CELL DISTRIBUTION WIDTH 32.7 % (11.5-14.5); WHITE BLOOD COUNT 20.2 10^3/ul (4.8-10.8)
[2016-06-03 06:20] LABS: ALBUMIN 2.4 g/dl (3.3-4.9)
[2016-06-03 06:21] LABS: POTASSIUM 4.2 mmol/L (3.5-5.1)
[2016-06-03 06:23] LABS: ALBUMIN/GLOBULIN RATIO 0.63; BILIRUBIN,DIRECT 13.4 mg/dl (0.00-0.20); BILIRUBIN,INDIRECT 2.3 mg/dl (0-1.1); BILIRUBIN,TOTAL 15.7 mg/dl (0.2-1.3); CREATININE 0.79 mg/dl (0.44-1.00); TOTAL PROTEIN 6.2 g/dl (6.1-8.1)
[2016-06-03 06:35] LABS: ADD SCAN DIFF YES
[2016-06-03 08:33] VITALS: BP 106/53; PULSE 62; RESP 18
[2016-06-03] MEDS: FAMOTIDINE 20 MG TAB PO SCH ×2 (09:00→20:01)
--- NOTE | 2016-06-03 09:49 | PN ---
Date/Time of Note Date/Time of Note DATE: 06/03/16 TIME: 09:44 Assessment/Plan VTE Prophylaxis VTE Prophylaxis Intervention: SCD's Lines/Catheters IV [facility] Type (from [facility] Peripheral IV Urinary Cath still in place: No Assessment/Plan Assessment/Plan 1. 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 History of breast cancer No acute issues 3. Renal mass likely hemorrhagic cyst Monitor Prophylaxis: SCDs WBC bumped to 20, likley due to steroids, pt afebrile, Bp stable D/c IVF,pt tolerated po diet well TB 15.7, LFTs are still high, s/p US guided biopsy of liver done on 05/30/16- Report still pending Subjective 24 Hr Interval Summary Free Text/Dictation WBC bumped to 20, likley due to steroids, pt afebrile, Bp stable TB 15.7, LFTs are still high, s/p US guided biopsy of liver done on 05/30/16- Report still pending Exam/Review of Systems Vital Signs Vitals Vital Signs Date Time Temp Pulse Resp B/P Pulse Ox O2 Delivery O2 Flow Rate FiO2 06/03/16 08:33 98.4 62 18 106/53 98 Room Air Intake and Output 06/02/16 06/02/16 06/03/16 15:00 23:00 07:00 Intake Total 2630 ml 500 ml Balance 2630 ml 500 ml Exam Constitutional: alert, oriented Respiratory: clear to auscultation Cardiovascular: regular rate and rhythm Gastrointestinal: non-tender, soft, No distended Musculoskeletal: nl extremities to inspection Skin: other (Jaundice) Results Result Diagram: 06/03/16 0505 06/03/16 0505 Results 24 hrs Laboratory Tests Test 06/03/16 05:05 Alanine Aminotransferase (ALT/SGPT) 385 H Albumin 2.4 L Albumin/Globulin Ratio 0.63 Alkaline Phosphatase 184 H Anion Gap 15 Aspartate Amino Transf (AST/SGOT) 684 H Basophils # 0.0 Basophils % 0.1 Blood Urea Nitrogen 14 Calcium Level 8.0 L Carbon Dioxide Level 22 Chloride Level 112 H Creatinine 0.79 Direct Bilirubin 13.40 H Eosinophils # 0.0 Eosinophils % 0.1 Globulin 3.80 H Glucose Level 115 Hematocrit 32.7 L Hemoglobin 11.0 L Indirect Bilirubin 2.3 H Lymphocytes # 1.3 Lymphocytes % 6.6 L Mean Corpuscular Hemoglobin 26.9 L Mean Corpuscular Hemoglobin Concent 33.6 Mean Corpuscular Volume 80.0 L Mean Platelet Volume 10.6 H Monocytes # 1.9 H Monocytes % 9.4 Neutrophils # 16.8 H Neutrophils % 83.1 H Nucleated Red Blood Cells # 0.0 Nucleated Red Blood Cells % 0.0 Platelet Count 364 # Potassium Level 4.2 Red Blood Count 4.09 L Red Cell Distribution Width 32.7 H Sodium Level 145 H Total Bilirubin 15.7 #H Total Protein 6.2 # White Blood Count 20.2 #H Medications Medications Current Medications Ondansetron HCl (Zofran Inj) 4 mg Q6H PRN IV NAUSEA AND/OR VOMITING; Start 01/31 at 11:30 Magnesium Hydroxide (Milk Of Mag) 30 ml DAILY PRN PO CONSTIPATION; Start at 11:30; Status Future hold Bisacodyl (Dulcolax) 5 mg DAILY PRN PO CONSTIPATION; Start 05/25/16 at 11:30 Famotidine (Pepcid) 20 mg Q12 PO Last administered on 05/30/16 08:13; Admin Dose 20 MG; Start 05/25/16 at 21:00; Status Future hold Tramadol HCl 50 mg 50 mg Q6H PRN PO Pain Last administered on 05/26/16 01:19; Admin Dose 50 MG; Start 05/25/16 at 12:00; Status Future hold Sodium Chloride (NS) 1,000 ml @ 75 mls/hr [id number] IV Last administered on 06/02 22:30; Admin Dose 75 MLS/HR; Start 05/25/16 at 12:30 Prednisolone (Prednisolone) 60 mg DAILY PO Last administered on 06/02/16 08:24 ; Admin Dose 60 MG; Start 06/01/16 at 18:30 DALLIN FITCH MD Jun 03, 2016 09:48
[2016-06-03] MEDS: predniSOLONE 5 MG TAB PO SCH (11:03)
[2016-06-03 11:04] LABS: LYMPHOCYTES # 2.4 10^3/ul (0.8-2.9); MONOCYTE # 1.8 10^3/ul (0.3-0.9); NEUTROPHIL # 14.3 10^3/ul (1.6-7.5); PLATELET ESTIMATE PLT APPEAR ADEQUATE; PLATELETS CLUMPS FEW
--- NOTE | 2016-06-03 12:57 | PN ---
Date/Time of Note Date/Time of Note DATE: 06/03/16 TIME: 12:51 Assessment/Plan VTE Prophylaxis VTE Prophylaxis Intervention: SCD's Lines/Catheters IV [facility]from [facility] Peripheral IV Urinary Cath still in place: No Assessment/Plan Assessment/Plan Assessment: * Hyperbilirubinemia/abnormal liver function tests/hepatocellular pattern * Rule out acute hepatitis: Viral A, B, C, CMV neg. ASMA positive titer 1:80 suggestive of autoimmune hepatitis * Rule out drug-induced. Pt started new supplement Quercetin roughly a month before symptom onset. Quercetin inhibits Cytochrome P450 2C9 substrates and Melatonin is a Cytochrome P450 2C9 substrate. Unlikely to be playing a role * Rule out obstructive although no dilatation of common bile duct will not support this possibility * MRCP: 1.Gallbladder is partially contracted, and demonstrates diffuse wall edema, most likely reactive secondary to underlying liver disease - correlate with liver function tests. No evidence of cholelithiasis or pericholecystic inflammation is identified. 2. Liver demonstrates scattered well-defined T2 hyperintensities, correlating to hypodensities on recent prior CT, likely benign hemangiomas. 3. No biliary dilatation or choledocholithiasis is identified. * NO pancreatic head neoplasm with negative CT for pancreatic mass or dilatation of the biliary tree * Rule out atypical presentation for sclerosing cholangitis/primary biliary cirrhosis * Distant history of right breast cancer/post lumpectomy plus radiation Plan: * Review liver biopsy results as soon as possible * Monitor liver function tests * Further recommendations depend on clinical course Subjective 24 Hr Interval Summary Free Text/Dictation spoke with the nurse updates received ,patient is stable Patient reports feeling well with no significant abdominal pain or discomfort Tolerating diet without difficulties Remains deeply jaundiced Anti smooth muscle antibody POSITIVE titer 1:80, MATILDE is negative Liver function tests essentially improved although wbc increased to 20.2 Awaiting liver biopsy histological exam Started on prednisolone 60 mg with suspicious of autoimmune hepatitis We will review biopsy as soon as possible Exam/Review of Systems Vital Signs Vitals Vital Signs Date Time Temp Pulse Resp B/P Pulse Ox O2 Delivery O2 Flow Rate FiO2 06/03/16 08:33 98.4 62 18 106/53 98 Room Air Intake and Output 06/02/16 06/02/16 06/03/16 15:00 23:00 07:00 Intake Total 2630 ml 500 ml Balance 2630 ml 500 ml Exam Constitutional: alert, oriented, well developed, deeply jaundiced Psych: nl mood/affect Head: normocephalic Eyes: Icteric conjunctiva EOMI, nl conjunctiva, nl lids ENMT: nl external ears & nose, nl lips & teeth, nl nasal mucosa & septum Respiratory: clear to auscultation, normal air movement Cardiovascular: regular rate and rhythm Gastrointestinal: soft, non-tender Musculoskeletal: nl extremities to inspection Neurological: METAL DRESSER II-XII intact Results Result Diagram: 06/03/16 0505 06/03/16 0505 Results 24 hrs Laboratory Tests Test 06/03/16 05:05 Alanine Aminotransferase (ALT/SGPT) 385 H Albumin 2.4 L Albumin/Globulin Ratio 0.63 Alkaline Phosphatase 184 H Anion Gap 15 Aspartate Amino Transf (AST/SGOT) 684 H Basophils # Basophils % Blood Urea Nitrogen 14 Calcium Level 8.0 L Carbon Dioxide Level 22 Chloride Level 112 H Clumped Platelets FEW Creatinine 0.79 Direct Bilirubin 13.40 H Eosinophils # Eosinophils % Globulin 3.80 H Glucose Level 115 Hematocrit 32.7 L Hemoglobin 11.0 L Indirect Bilirubin 2.3 H Lymphocytes # 2.4 Lymphocytes % 12.0 L Mean Corpuscular Hemoglobin 26.9 L Mean Corpuscular Hemoglobin Concent 33.6 Mean Corpuscular Volume 80.0 L Mean Platelet Volume 10.6 H Monocytes # 1.8 H Monocytes % 9.0 Neutrophils # 14.3 H Neutrophils % 71.0 Nucleated Red Blood Cells # Nucleated Red Blood Cells % 0.0 Platelet Count 364 # Platelet Estimate PLT APPEAR ADEQUATE Potassium Level 4.2 Red Blood Count 4.09 L Red Cell Distribution Width 32.7 H Sodium Level 145 H Total Bilirubin 15.7 #H Total Protein 6.2 # White Blood Count 20.2 #H Medications Medications Current Medications Ondansetron HCl (Zofran Inj) 4 mg Q6H PRN IV NAUSEA AND/OR VOMITING; Start 01/31 at 11:30 Magnesium Hydroxide (Milk Of Mag) 30 ml DAILY PRN PO CONSTIPATION; Start at 11:30; Status Future hold Bisacodyl (Dulcolax) 5 mg DAILY PRN PO CONSTIPATION; Start 05/25/16 at 11:30 Famotidine (Pepcid) 20 mg Q12 PO Last administered on 05/30/16t 08:13; Admin Dose 20 MG; Start 05/25/16 at 21:00; Status Future hold Tramadol HCl (Ultram) 50 mg Q6H PRN PO Pain Last administered on 05/26/16 01: 19; Admin Dose 50 MG; Start 05/25/16 at 12:00; Status Future hold Prednisolone (Prednisolone) 60 mg DAILY PO Last administered on 06/03/16 11:03 ; Admin Dose 60 MG; Start 06/01/16 at 18:30 LESTER DICK MD Jun 03, 2016 12:57
[2016-06-03 20:35] VITALS: BP 104/56; RESP 18
[2016-06-04 05:39] LABS: ADD SCAN DIFF NO
[2016-06-04 05:51] LABS: INR 1.76; PROTIME 20.7 Sec (12.2-14.2); PT RATIO 1.6
[2016-06-04 05:52] LABS: PARTIAL THROMBOPLASTIN TIME 33.6 Sec (25.0-35.0)
[2016-06-04 06:05] LABS: ALBUMIN 2.5 g/dl (3.3-4.9); POTASSIUM 4.7 mmol/L (3.5-5.1)
[2016-06-04 06:07] LABS: CREATININE 0.77 mg/dl (0.44-1.00)
[2016-06-04 06:08] LABS: ABNORMAL IP MESSAGE 1; ALBUMIN/GLOBULIN RATIO 0.69; BASOPHILS % 0.1 % (0.0-2.0); BILIRUBIN,DIRECT 11.3 mg/dl (0.00-0.20); BILIRUBIN,INDIRECT 2.1 mg/dl (0-1.1); BILIRUBIN,TOTAL 13.4 mg/dl (0.2-1.3); CALCIUM 8.3 mg/dl (8.4-10.2); HEMATOCRIT 33.1 % (37.0-47.0); HEMOGLOBIN 11.3 g/dl (12.0-16.0); LYMPHOCYTES # 1.1 10^3/ul (0.8-2.9); MEAN CORPUSCULAR HEMOGLOBIN 27.2 pg (29.0-33.0); MEAN CORPUSCULAR HGB CONC 34.1 g/dl (32.0-37.0); MEAN CORPUSCULAR VOLUME 79.8 fl (82.0-101.0); MEAN PLATELET VOLUME 10.7 fl (7.4-10.4); MONOCYTE # 1.6 10^3/ul (0.3-0.9); MONOCYTES % 9.7 % (0.0-11.0); NEUTROPHIL # 13.1 10^3/ul (1.6-7.5); NEUTROPHILS % 82.1 % (39.0-77.0); PLATELET COUNT 383 10^3/UL (140-415); RED BLOOD COUNT 4.15 10^6/ul (4.20-5.40); RED CELL DISTRIBUTION WIDTH 33.1 % (11.5-14.5); TOTAL PROTEIN 6.1 g/dl (6.1-8.1)
[2016-06-04 08:28] VITALS: BP 104/56; RESP 18
[2016-06-04] MEDS: FAMOTIDINE 20 MG TAB PO SCH ×2 (09:00→20:12)
--- NOTE | 2016-06-04 09:40 | PN ---
Date/Time of Note Date/Time of Note DATE: 06/04/16 TIME: 09:38 Assessment/Plan VTE Prophylaxis VTE Prophylaxis Intervention: SCD's Lines/Catheters [facility] (from [facility] Saline Lock Urinary Cath still in place: No Assessment/Plan Assessment/Plan 1. 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 History of breast cancer No acute issues 3. Renal mass likely hemorrhagic cyst Monitor Prophylaxis: SCDs WBC improved to 15, likley due to steroids, pt afebrile, Bp stable D/c IVF,pt tolerated po diet well TB slowly improving with PO steroids LFTs are still high, s/p US guided biopsy of liver done on 05/30/16- Report still pending once Biopsy report is available, will have GI to decide about further plan Subjective 24 Hr Interval Summary Free Text/Dictation WBC improving, tolerating po diet, well, afebirle, TB slowly improvin, Biopsy report still pending Exam/Review of Systems Vital Signs Vitals Vital Signs Date Time Temp Pulse Resp B/P Pulse Ox O2 Delivery O2 Flow Rate FiO2 06/04/16 08:28 97.2 53 18 104/56 98 06/03/16 08:33 Room Air Intake and Output 06/03/16 06/03/16 06/04/16 15:00 23:00 07:00 Intake Total 225 ml Balance 225 ml Exam Constitutional: alert, oriented Respiratory: clear to auscultation Cardiovascular: regular rate and rhythm Gastrointestinal: non-tender, soft, No distended Musculoskeletal: nl extremities to inspection Skin: other (Jaundice) Results Result Diagram: 06/04/1652006/04/16520 Results 24 hrs Laboratory Tests Test 06/04/16 05:21 Activated Partial Thromboplast Time 33.6 Alanine Aminotransferase (ALT/SGPT) 346 H Albumin 2.5 L Albumin/Globulin Ratio 0.69 Alkaline Phosphatase 175 H Anion Gap 14 Aspartate Amino Transf (AST/SGOT) 489 H Basophils # 0.0 Basophils % 0.1 Blood Urea Nitrogen 16 Calcium Level 8.3 L Carbon Dioxide Level 24 Chloride Level 113 H Creatinine 0.77 Direct Bilirubin 11.30 H Eosinophils # 0.0 Eosinophils % 0.0 Globulin 3.60 H Glucose Level 108 Hematocrit 33.1 L Hemoglobin 11.3 L INR International Normalized Ratio 1.76 Indirect Bilirubin 2.1 H Lymphocytes # 1.1 Lymphocytes % 7.0 L Mean Corpuscular Hemoglobin 27.2 L Mean Corpuscular Hemoglobin Concent 34.1 Mean Corpuscular Volume 79.8 L Mean Platelet Volume 10.7 H Monocytes # 1.6 H Monocytes % 9.7 Neutrophils # 13.1 H Neutrophils % 82.1 H Nucleated Red Blood Cells # 0.0 Nucleated Red Blood Cells % 0.0 Platelet Count 383 Potassium Level 4.7 Prothrombin Time 20.7 #H Prothrombin Time Ratio 1.6 Red Blood Count 4.15 L Red Cell Distribution Width 33.1 H Sodium Level 146 H Total Bilirubin 13.4 H Total Protein 6.1 White Blood Count 16.0 #H Medications Medications Current Medications Ondansetron HCl (Zofran Inj) 4 mg Q6H PRN IV NAUSEA AND/OR VOMITING; Start 01/31 at 11:30 Magnesium Hydroxide (Milk Of Mag) 30 ml DAILY PRN PO CONSTIPATION; Start at 11:30; Status Future hold Bisacodyl (Dulcolax) 5 mg DAILY PRN PO CONSTIPATION; Start 05/25/16 at 11:30 Famotidine (Pepcid) 20 mg Q12 PO Last administered on 05/30/16 08:13; Admin Dose 20 MG; Start 05/25/16 at 21:00; Status Future hold Tramadol HCl (Ultram) 50 mg Q6H PRN PO Pain Last administered on 05/26/16 01: 19; Admin Dose 50 MG; Start 05/25/16 at 12:00; Status Future hold Prednisolone (Prednisolone) 60 mg DAILY PO Last administered on 06/03/16 11:03 ; Admin Dose 60 MG; Start 06/01/16 at 18:30 DALLIN FITCH MD Jun 04, 2016 09:40
--- NOTE | 2016-06-04 09:49 | PN ---
Date/Time of Note Date/Time of Note DATE: 06/04/16 TIME: 09:43 Assessment/Plan VTE Prophylaxis VTE Prophylaxis Intervention: SCD's Lines/Catheters [facility] (from [facility] Saline Lock Urinary Cath still in place: No Assessment/Plan Assessment/Plan ssessment: * Hyperbilirubinemia/abnormal liver function tests/hepatocellular pattern * ASMA positive titer 1:80 suggestive of autoimmune hepatitis. Pathology c/w autoimmune hepatitis with cholestasis * Acute hepatitis: Viral A, B, C, CMV neg. * MRCP: 1.Gallbladder is partially contracted, and demonstrates diffuse wall edema, most likely reactive secondary to underlying liver disease - correlate with liver function tests. No evidence of cholelithiasis or pericholecystic inflammation is identified. 2. Liver demonstrates scattered well-defined T2 hyperintensities, correlating to hypodensities on recent prior CT, likely benign hemangiomas. 3. No biliary dilatation or choledocholithiasis is identified. * NO pancreatic head neoplasm with negative CT for pancreatic mass or dilatation of the biliary tree * Distant history of right breast cancer/post lumpectomy plus radiation Plan: * Safe for OP follow up * Taper steroids slowly 10mg weekly * GI follow up in 1 weeks * Monitor liver function tests weekly * Further recommendations depend on clinical course Subjective 24 Hr Interval Summary Free Text/Dictation Course reviewed with nursing staff, patient interviewed and examined Patient reports feeling well with no significant abdominal pain or discomfort Tolerating diet without difficulties Remains deeply jaundiced Liver function tests minimal drop Bili otherwise essentially unchanged but wbc drop to 16 Liver biopsy c/w autoimmune hepatitis. 2nd opinion at [facility] [[email or web address]] pending On prednisolone 60 mg with suspicious of autoimmune hepatitis Appears safe for OP care with tapering steroid schedule taper down 10mg weekly. Weekly LFT's GI follow in 1 weeks Exam/Review of Systems Vital Signs Vitals Vital Signs Date Time Temp Pulse Resp B/P Pulse Ox O2 Delivery O2 Flow Rate FiO2 06/04/16 08:28 97.2 53 18 104/56 98 06/03/16 08:33 Room Air Intake and Output 06/03/16 06/03/16 06/04/16 15:00 23:00 07:00 Intake Total 225 ml Balance 225 ml Exam Constitutional: alert, oriented, well developed, deeply jaundiced Psych: nl mood/affect Head: normocephalic Eyes: Icteric sclera EOMI, nl conjunctiva, nl lids Respiratory: clear to auscultation, normal air movement Cardiovascular: regular rate and rhythm Gastrointestinal: soft, non-tender Musculoskeletal: nl extremities to inspection Results Result Diagram: 06/04/1652006/04/1621 Results 24 hrs Laboratory Tests Test 06/04/16 05:21 Activated Partial Thromboplast Time 33.6 Alanine Aminotransferase (ALT/SGPT) 346 H Albumin 2.5 L Albumin/Globulin Ratio 0.69 Alkaline Phosphatase 175 H Anion Gap 14 Aspartate Amino Transf (AST/SGOT) 489 H Basophils # 0.0 Basophils % 0.1 Blood Urea Nitrogen 16 Calcium Level 8.3 L Carbon Dioxide Level 24 Chloride Level 113 H Creatinine 0.77 Direct Bilirubin 11.30 H Eosinophils # 0.0 Eosinophils % 0.0 Globulin 3.60 H Glucose Level 108 Hematocrit 33.1 L Hemoglobin 11.3 L INR International Normalized Ratio 1.76 Indirect Bilirubin 2.1 H Lymphocytes # 1.1 Lymphocytes % 7.0 L Mean Corpuscular Hemoglobin 27.2 L Mean Corpuscular Hemoglobin Concent 34.1 Mean Corpuscular Volume 79.8 L Mean Platelet Volume 10.7 H Monocytes # 1.6 H Monocytes % 9.7 Neutrophils # 13.1 H Neutrophils % 82.1 H Nucleated Red Blood Cells # 0.0 Nucleated Red Blood Cells % 0.0 Platelet Count 383 Potassium Level 4.7 Prothrombin Time 20.7 #H Prothrombin Time Ratio 1.6 Red Blood Count 4.15 L Red Cell Distribution Width 33.1 H Sodium Level 146 H Total Bilirubin 13.4 H Total Protein 6.1 White Blood Count 16.0 #H Medications Medications Current Medications Ondansetron HCl (Zofran Inj) 4 mg Q6H PRN IV NAUSEA AND/OR VOMITING; Start 01/31 at 11:30 Magnesium Hydroxide (Milk Of Mag) 30 ml DAILY PRN PO CONSTIPATION; Start at 11:30; Status Future hold Bisacodyl (Dulcolax) 5 mg DAILY PRN PO CONSTIPATION; Start 05/25/16 at 11:30 Famotidine (Pepcid) 20 mg Q12 PO Last administered on 05/30/16t 08:13; Admin Dose 20 MG; Start 05/25/16 at 21:00; Status Future hold Tramadol HCl (Ultram) 50 mg Q6H PRN PO Pain Last administered on 05/26/16 01: 19; Admin Dose 50 MG; Start 05/25/16 at 12:00; Status Future hold Prednisolone (Prednisolone) 60 mg DAILY PO Last administered on 06/03/16 11:03 ; Admin Dose 60 MG; Start 06/01/16 at 18:30 LESTER DICK MD Jun 04, 2016 09:49
[2016-06-04] MEDS: predniSOLONE 5 MG TAB PO SCH (10:06)
[2016-06-04 19:45] VITALS: BP 110/53; RESP 20
[2016-06-05 05:55] LABS: ADD SCAN DIFF NO
[2016-06-05 06:07] LABS: ABNORMAL IP MESSAGE 1; BASOPHILS % 0.1 % (0.0-2.0); EOSINOPHILS % 0.1 % (0.0-7.0); HEMATOCRIT 32.7 % (37.0-47.0); LYMPHOCYTES # 1.3 10^3/ul (0.8-2.9); LYMPHOCYTES % 9.6 % (15.0-51.0); MEAN CORPUSCULAR HEMOGLOBIN 27.2 pg (29.0-33.0); MEAN CORPUSCULAR HGB CONC 33.6 g/dl (32.0-37.0); MEAN CORPUSCULAR VOLUME 80.7 fl (82.0-101.0); MEAN PLATELET VOLUME 10.7 fl (7.4-10.4); MONOCYTE # 1.8 10^3/ul (0.3-0.9); MONOCYTES % 13.1 % (0.0-11.0); NEUTROPHIL # 10.1 10^3/ul (1.6-7.5); NEUTROPHILS % 75.6 % (39.0-77.0); PLATELET COUNT 350 10^3/UL (140-415); RED BLOOD COUNT 4.05 10^6/ul (4.20-5.40); RED CELL DISTRIBUTION WIDTH 33.1 % (11.5-14.5); WHITE BLOOD COUNT 13.4 10^3/ul (4.8-10.8)
[2016-06-05 06:23] LABS: ALBUMIN 2.3 g/dl (3.3-4.9)
[2016-06-05 06:24] LABS: POTASSIUM 4.8 mmol/L (3.5-5.1)
[2016-06-05 06:26] LABS: ALBUMIN/GLOBULIN RATIO 0.69; BILIRUBIN,DIRECT 8.9 mg/dl (0.00-0.20); BILIRUBIN,TOTAL 10.9 mg/dl (0.2-1.3); CREATININE 0.77 mg/dl (0.44-1.00); TOTAL PROTEIN 5.6 g/dl (6.1-8.1)
[2016-06-05 06:27] LABS: CALCIUM 8.1 mg/dl (8.4-10.2)
[2016-06-05 07:47] VITALS: BP 114/62; RESP 18
[2016-06-05] MEDS: FAMOTIDINE 20 MG TAB PO SCH ×2 (09:00→20:25)
[2016-06-05] MEDS: predniSOLONE 5 MG TAB PO SCH (09:24)
--- NOTE | 2016-06-05 10:49 | PN ---
Date/Time of Note Date/Time of Note DATE: 06/05/16 TIME: 10:44 Assessment/Plan VTE Prophylaxis VTE Prophylaxis Intervention: SCD's Lines/Catheters IV C[facility] Type (from [facility] Saline Lock Urinary Cath still in place: No Assessment/Plan Assessment/Plan Assessment: * Hyperbilirubinemia/abnormal liver function tests/hepatocellular pattern * ASMA positive titer 1:80 suggestive of autoimmune hepatitis. Pathology c/w autoimmune hepatitis with cholestasis * Acute hepatitis: Viral A, B, C, CMV neg. * MRCP: 1.Gallbladder is partially contracted, and demonstrates diffuse wall edema, most likely reactive secondary to underlying liver disease - correlate with liver function tests. No evidence of cholelithiasis or pericholecystic inflammation is identified. 2. Liver demonstrates scattered well-defined T2 hyperintensities, correlating to hypodensities on recent prior CT, likely benign hemangiomas. 3. No biliary dilatation or choledocholithiasis is identified. * NO pancreatic head neoplasm with negative CT for pancreatic mass or dilatation of the biliary tree * Distant history of right breast cancer/post lumpectomy plus radiation Plan: * Safe for OP follow up * Taper steroids slowly 10mg weekly * GI follow up in 1 weeks * Monitor liver function tests weekly * Further recommendations depend on clinical course Subjective 24 Hr Interval Summary Free Text/Dictation Course reviewed with nursing staff Patient reports feeling well with no significant abdominal pain or discomfort Tolerating diet without difficulties Remains deeply jaundiced Liver function tests improved wbc 13.2 Liver biopsy c/w autoimmune hepatitis. 2nd opinion at [facility] pending On prednisolone 60 mg for autoimmune hepatitis Appears safe for OP care with tapering steroid schedule taper down 10mg weekly. Weekly LFT's GI follow in 1 weeks Exam/Review of Systems Vital Signs Vitals Vital Signs Date Time Temp Pulse Resp B/P Pulse Ox O2 Delivery O2 Flow Rate FiO2 06/05/16 07:47 97.5 52 18 114/62 100 06/03/16 08:33 Room Air Intake and Output 06/04/16 06/04/16 06/05/16 15:00 23:00 07:00 Intake Total 1320 ml 880 ml Balance 1320 ml 880 ml Exam Constitutional: alert, oriented, well developed, jaundiced Psych: nl mood/affect Eyes: Icteric sclera EOMI, nl conjunctiva, nl lids Respiratory: clear to auscultation, normal air movement Cardiovascular: regular rate and rhythm Gastrointestinal: soft, non-tender Musculoskeletal: nl extremities to inspection Results Result Diagram: 06/05/16 0518 06/05/16 0507 Results 24 hrs Laboratory Tests Test 06/05/16 05:07 06/05/16 05:18 Sodium Level 145 H Potassium Level 4.8 Chloride Level 113 H Carbon Dioxide Level 24 Anion Gap 13 Blood Urea Nitrogen 16 Creatinine 0.77 Glucose Level 110 Calcium Level 8.1 L Total Bilirubin 10.9 H Direct Bilirubin 8.90 H Indirect Bilirubin 2.0 H Aspartate Amino Transf (AST/SGOT) 400 H Alanine Aminotransferase (ALT/SGPT) 314 H Alkaline Phosphatase 170 H Total Protein 5.6 L Albumin 2.3 L Globulin 3.30 H Albumin/Globulin Ratio 0.69 White Blood Count 13.4 H Red Blood Count 4.05 L Hemoglobin 11.0 L Hematocrit 32.7 L Mean Corpuscular Volume 80.7 L Mean Corpuscular Hemoglobin 27.2 L Mean Corpuscular Hemoglobin Concent 33.6 Red Cell Distribution Width 33.1 H Platelet Count 350 Mean Platelet Volume 10.7 H Neutrophils % 75.6 Lymphocytes % 9.6 L Monocytes % 13.1 H Eosinophils % 0.1 Basophils % 0.1 Nucleated Red Blood Cells % 0.0 Neutrophils # 10.1 H Lymphocytes # 1.3 Monocytes # 1.8 H Eosinophils # 0.0 Basophils # 0.0 Nucleated Red Blood Cells # 0.0 Medications Medications Current Medications Ondansetron HCl (Zofran Inj) 4 mg Q6H PRN IV NAUSEA AND/OR VOMITING; Start 01/31 at 11:30 Magnesium Hydroxide (Milk Of Mag) 30 ml DAILY PRN PO CONSTIPATION; Start at 11:30; Status Future hold Bisacodyl (Dulcolax) 5 mg DAILY PRN PO CONSTIPATION; Start 05/25/16 at 11:30 Famotidine (Pepcid) 20 mg Q12 PO Last administered on 05/30/16 08:13; Admin Dose 20 MG; Start 05/25/16 at 21:00; Status Future hold Tramadol HCl (Ultram) 50 mg Q6H PRN PO Pain Last administered on 05/26/16 01: 19; Admin Dose 50 MG; Start 05/25/16 at 12:00; Status Future hold Prednisolone (Prednisolone) 60 mg DAILY PO Last administered on 06/05/16t 09:24 ; Admin Dose 60 MG; Start 06/01/16 at 18:30 LESTER DICK MD Jun 05, 2016 10:49
--- NOTE | 2016-06-05 16:06 | PN ---
Date/Time of Note Date/Time of Note DATE: 06/05/16 TIME: 16:04 Assessment/Plan VTE Prophylaxis VTE Prophylaxis Intervention: SCD's Lines/Catheters IV Catheter Type (from [facility]): Saline Lock Urinary Cath still in place: No Assessment/Plan Assessment/Plan 1. 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 History of breast cancer No acute issues 3. Renal mass likely hemorrhagic cyst Monitor Prophylaxis: SCDs WBC improved to 15, likley due to steroids, pt afebrile, Bp stable TB slowly improving with PO steroids LFTs are still high, s/p US guided biopsy of liver done on 05/30/16- preliminary report neg for malignancy, it showed autoimmune hepatitis d/c home tomorrow after Final GI recommendations Subjective 24 Hr Interval Summary Free Text/Dictation on PO prednisone , No nausea, no vomiting, no abd pain Exam/Review of Systems Vital Signs Vitals Vital Signs Date Time Temp Pulse Resp B/P Pulse Ox O2 Delivery O2 Flow Rate FiO2 06/05/16 07:47 97.5 52 18 114/62 100 06/03/16 08:33 Room Air Intake and Output 06/04/16 06/04/16 06/05/16 15:00 23:00 07:00 Intake Total 1320 ml 880 ml Balance 1320 ml 880 ml Results Result Diagram: 06/05/16 0518 06/05/16 0507 Results 24 hrs Laboratory Tests Test 06/05/16 05:07 06/05/16 05:18 Sodium Level 145 H Potassium Level 4.8 Chloride Level 113 H Carbon Dioxide Level 24 Anion Gap 13 Blood Urea Nitrogen 16 Creatinine 0.77 Glucose Level 110 Calcium Level 8.1 L Total Bilirubin 10.9 H Direct Bilirubin 8.90 H Indirect Bilirubin 2.0 H Aspartate Amino Transf (AST/SGOT) 400 H Alanine Aminotransferase (ALT/SGPT) 314 H Alkaline Phosphatase 170 H Total Protein 5.6 L Albumin 2.3 L Globulin 3.30 H Albumin/Globulin Ratio 0.69 White Blood Count 13.4 H Red Blood Count 4.05 L Hemoglobin 11.0 L Hematocrit 32.7 L Mean Corpuscular Volume 80.7 L Mean Corpuscular Hemoglobin 27.2 L Mean Corpuscular Hemoglobin Concent 33.6 Red Cell Distribution Width 33.1 H Platelet Count 350 Mean Platelet Volume 10.7 H Neutrophils % 75.6 Lymphocytes % 9.6 L Monocytes % 13.1 H Eosinophils % 0.1 Basophils % 0.1 Nucleated Red Blood Cells % 0.0 Neutrophils # 10.1 H Lymphocytes # 1.3 Monocytes # 1.8 H Eosinophils # 0.0 Basophils # 0.0 Nucleated Red Blood Cells # 0.0 Medications Medications Current Medications Ondansetron HCl (Zofran Inj) 4 mg Q6H PRN IV NAUSEA AND/OR VOMITING; Start 01/31 at 11:30 Magnesium Hydroxide (Milk Of Mag) 30 ml DAILY PRN PO CONSTIPATION; Start at 11:30; Status Future hold Bisacodyl (Dulcolax) 5 mg DAILY PRN PO CONSTIPATION; Start 05/25/16 at 11:30 Famotidine (Pepcid) 20 mg Q12 PO Last administered on 05/30/16 08:13; Admin Dose 20 MG; Start 05/25/16 at 21:00; Status Future hold Tramadol HCl (Ultram) 50 mg Q6H PRN PO Pain Last administered on 05/26/16 01: 19; Admin Dose 50 MG; Start 05/25/16 at 12:00; Status Future hold Prednisolone (Prednisolone) 60 mg DAILY PO Last administered on 06/05/16 09:24 ; Admin Dose 60 MG; Start 06/01/16 at 18:30 DALLIN FITCH MD Jun 05, 2016 16:06
[2016-06-05 20:00] VITALS: BP 130/60; RESP 20
[2016-06-06 07:45] VITALS: BP 115/85; RESP 16
[2016-06-06] MEDS: FAMOTIDINE 20 MG TAB PO SCH (08:33)
[2016-06-06] MEDS: predniSOLONE 5 MG TAB PO SCH (08:38)
--- NOTE | 2016-06-06 10:17 | PDOCDIS ---
Discharge Instructions CONDITION Patient Condition: Good HOME CARE INSTRUCTIONS: Special Diet: VEGETARIAN ACTIVITY: Activity Restrictions: Slowly Increase Activity Rest between Activity Avoid heavy lifting Avoid Heavy Housework FOLLOW UP/APPOINTMENTS Appointments follow up with Dr.Kalpesh Fitch in 1 week after discharge( [phone]). follow up with Dr.Mordo Sharp( Gastroenterology) in 1-2 week after discharge DALLIN FITCH MD Jun 06, 2016 10:17
[2016-06-06] MEDS ORDERED: TRAM50TA2 PO (10:21)
[2016-06-06] MEDS ORDERED: FAMO20TA18 PO (10:21)
[2016-06-06] MEDS ORDERED: FURO20TA3 PO (11:06)
--- NOTE | 2016-06-09 00:49 | DS ---
DATE OF ADMISSION: 05/25/2016 DATE OF DISCHARGE: 06/06/2016 FINAL DISCHARGE DIAGNOSES: 1. Hepatocellular jaundice. Workup has been positive for autoimmune hepatitis with cholestasis. 2. Distant history of right breast cancer status post lumpectomy plus radiation 3. Intractable abdominal pain with significant jaundice. CONSULTATIONS DONE DURING THIS HOSPITALIZATION: GI consult, Dr. Sharp. PROCEDURES PERFORMED DURING THIS HOSPITALIZATION: 1. MRCP negative for any mass. 2. Hepatitis panel was negative. 3. Status post ultrasound-guided liver biopsy was done. HOSPITAL COURSE: This is a 65-year-old female who has no significant past medical history. Her [facility] history includes history of breast cancer status post lumpectomy and had radiation before status post partial right mastectomy and had radiation before. ' Other surgical history includes tonsillectomy and appendectomy. The patient presented to [facility] with yellowish discoloration of her skin and sclera. She was noted to have jaund ice. The patient had a GI consultation done by Dr. Sharp. Due to her persistently elevated total bilirubin and other workup including the hepatitis panel, which was unremarkable, the patient had an ultrasound-guided liver biopsy done, which was consistent with autoimmune hepatitis. The patient i nitially treated symptomatically and conservatively, but after getting the confirmation of diagnosis of autoimmune hepatitis, she was started on prednisone 60 mg p.o. daily, and the patient remains sy mptomatically much better. Her total bilirubin was also improving, and after getting GI clearance, she got discharged home with prescriptions of a tapering dose of prednisone. DISPOSITION: To home. DISCHARGE CONDITION: Stable and improved compared to admission. DISCHARGE ACTIVITIES: As tolerated, slowly resume to the normal baseline activity. DISCHARGE DIET: Regular diet. DISCHARGE MEDICATIONS: She is given tapering course of prednisone 60 mg p.o. daily x7 days, followe d by 50 mg p.o. daily x7 days, followed by 40 mg p.o. daily x7 days, followed by 30 mg p.o. daily x7 days, followed by 20 mg p.o. daily x7 days, followed by 10 mg p.o. daily x7 days. She is also give n prescriptions of Pepcid 20 mg p.o. b.i.d., Lasix 20 mg p.o. daily p.r.n. leg edema, tramadol 50 mg p.o. q. 4 hours p.r.n. yoimijgh-ne-efnvuy pain. DISCHARGE FOLLOWUP INSTRUCTIONS 1. The patient is to follow with Dr. Dallin Fitch in outpatient clinic 1-2 weeks after discharge. 2. The patient is to follow up with GI physician, Dr. Sharp, as outpatient in 2-3 weeks after dis charge. She has been explained about discharge plan and followup instructions. She understood and verbalize d understanding. Dictated By: DALLIN FITCH MD, KP/MILTON Conf#: [id number] DID#: [id number]
== END 2016-06-06 11:35 | disposition home or self-care (01) | DRG 441 ==
LOC: E/R 06:07 → MS2 11:40
PROVIDERS: ADMIT Family Medicine; ATTEND Family Medicine
PROC: 0FB13ZX Excision of Right Lobe Liver, Percutaneous Approach, Diagnostic (ICD-10-PCS; principal; 2016-05-30)
DX: K75.4 Autoimmune hepatitis (principal); K83.1 Obstruction of bile duct; K83.0 Cholangitis; K76.0 Fatty (change of) liver, not elsewhere classified; R17 Unspecified jaundice; Z68.1 Body mass index [BMI] 19.9 or less, adult; Z85.3 Personal history of malignant neoplasm of breast; R63.4 Abnormal weight loss; N28.89 Other specified disorders of kidney and ureter
CPT/HCPCS: 36415; 71010; 74176; 74181; 76705; 76942; 80053; 80061; 81001; 81003; 82105; 82140; 82150; 82247; 82248; 82390; 82652; 82728; 83010; 83036; 83540; 83615; 83690; 83735; 84075; 84100; 84439; 84443; 84450; 84460; 84466; 85025; 85045; 85610; 85730; 86038; 86255; 86644; 86664; 86703; 86704; 86706; 86709; 86803; 87340; 88307; 88313; 96374; J2405; J7030; J7510